=== PATIENT | female | born 1960 | race Caucasian/White ===

== ENCOUNTER 2019-05-08 11:22 | Day surgery (SDC) | payer MEDICARE ==
[2019-05-08] MEDS ORDERED: Marcaine 0.5% SDV 10 ML IJ ONE (11:23)
[2019-05-08] MEDS ORDERED: DIPRIVAN 200 MG/20 ML IV ONE (12:32)
[2019-05-08] MEDS ORDERED: Ketamine HCl 50 MG/ML ONE (12:32)
--- NOTE | 2019-05-08 14:03 | XRAY ---
Indication: Ganglion impar nerve block. Intraoperative fluoroscopy was provided for 28 seconds. Single lateral digital spot image submitted for interpretation demonstrates posterior needle tip just anteroinferior to the coccyx. Small amount of contrast injected for needle tip placement. Correlate with intraoperative findings/report.
--- NOTE | 2019-05-08 14:09 | XRAY ---
28 seconds fluoroscopy time in surgery for ganglion impar nerve block.
[2019-05-08] MEDS ORDERED: Lactated Ringers 1,000 ML IV ONE (15:18)
== END 2019-05-08 13:02 | disposition home or self-care (01) ==
LOC: SDC-PAIN 11:22
PROVIDERS: ATTEND Psychiatry & Neurology Pain Medicine
DX: M53.3 Sacrococcygeal disorders, not elsewhere classified (principal); J44.9 Chronic obstructive pulmonary disease, unspecified; G35 Multiple sclerosis; M19.90 Unspecified osteoarthritis, unspecified site; F41.8 Other specified anxiety disorders; Z79.899 Other long term (current) drug therapy
CPT/HCPCS: 64999; 72020; 77002; J1642; J2704; Q9966

== ENCOUNTER 2019-06-19 10:05 | Day surgery (SDC) | payer MEDICARE ==
[2019-06-19] MEDS ORDERED: Marcaine 0.5% SDV 10 ML IJ ONE (10:06)
[2019-06-19] MEDS ORDERED: Xylocaine 1% Vial 30 ML PF IJ ONE (10:06)
[2019-06-19] MEDS ORDERED: Ketamine HCl 50 MG/ML ONE (11:31)
[2019-06-19] MEDS ORDERED: DIPRIVAN 200 MG/20 ML IV ONE (11:31)
--- NOTE | 2019-06-19 12:59 | XRAY ---
Indication: Ganglion impar nerve block. Intraoperative fluoroscopy was provided for 13 seconds. Single lateral digital spot image submitted for interpretation demonstrates posterior needle tip just anteriorly to the coccyx. Small amount of contrast injected for needle tip placement. Correlate with intraoperative findings/report.
--- NOTE | 2019-06-19 13:01 | XRAY ---
13 seconds of fluoroscopy was used in surgery for a ganglion impar injection.
[2019-06-19] MEDS ORDERED: Lactated Ringers 1,000 ML IV ONE (15:55)
== END 2019-06-19 12:00 | disposition home or self-care (01) ==
LOC: SDC-PAIN 10:05
PROVIDERS: ATTEND Psychiatry & Neurology Pain Medicine
DX: M53.3 Sacrococcygeal disorders, not elsewhere classified (principal); J44.9 Chronic obstructive pulmonary disease, unspecified; G35 Multiple sclerosis; M19.90 Unspecified osteoarthritis, unspecified site; Z79.899 Other long term (current) drug therapy
CPT/HCPCS: 64520; 72020; 77002; J1642; J2001; J2704; Q9966

== ENCOUNTER 2019-08-21 11:18 | Day surgery (SDC) | payer MEDICARE ==
[2019-08-21] MEDS ORDERED: Depo-Medrol 40 MG/ML IM ONE (11:19)
[2019-08-21] MEDS ORDERED: Xylocaine-Mpf 2% 5 Ml Vial IJ ONE (11:19)
[2019-08-21] MEDS ORDERED: Ketamine HCl 50 MG/ML ONE (13:11)
[2019-08-21] MEDS ORDERED: DIPRIVAN 200 MG/20 ML IV ONE (13:11)
--- NOTE | 2019-08-21 14:30 | XRAY ---
Indication: Bilateral L4-S1 MBB. Intraoperative fluoroscopy was provided for 10 seconds. Single digital spot image submitted for interpretation demonstrate posterior needle tips projecting over the expected course of the left and right L4-S1 nerve roots. Correlate with intraoperative findings/report.
[2019-08-21] MEDS ORDERED: Lactated Ringers 1,000 ML IV ONE (14:45)
--- NOTE | 2019-08-21 14:52 | XRAY ---
10 seconds fluoroscopy time in surgery for bilateral L4-S1 MBB.
== END 2019-08-21 14:06 | disposition home or self-care (01) ==
LOC: SDC-PAIN 11:18
PROVIDERS: ATTEND Psychiatry & Neurology Pain Medicine
DX: M47.816 Spondylosis without myelopathy or radiculopathy, lumbar region (principal); J44.9 Chronic obstructive pulmonary disease, unspecified; F41.8 Other specified anxiety disorders; G35 Multiple sclerosis; Z79.899 Other long term (current) drug therapy
CPT/HCPCS: 64493; 64494; 72020; 77002; J1030; J1642; J2704

== ENCOUNTER 2020-01-15 13:47 | Day surgery (SDC) | payer MEDICARE ==
[2020-01-15] MEDS ORDERED: Xylocaine 1% Vial 30 ML PF IJ ONE (13:48)
[2020-01-15] MEDS ORDERED: BUPIVACAINE 0.5% VIAL IJ ONE (13:48)
[2020-01-15] MEDS ORDERED: Depo-Medrol 40 MG/ML IM ONE (13:48)
[2020-01-15] MEDS ORDERED: DIPRIVAN 200 MG/20 ML IV ONE (14:38)
[2020-01-15] MEDS ORDERED: Ketamine HCl 50 MG/ML ONE (14:38)
[2020-01-15] MEDS ORDERED: Lactated Ringers 1,000 ML IV ONE (14:41)
--- NOTE | 2020-01-15 15:15 | XRAY ---
Indication: Bilateral L4-S1 MBB. Intraoperative fluoroscopy was provided for 9 seconds. Single digital spot image submitted for interpretation demonstrates posterior needle tips projecting over the expected course of the left and right L4-S1 nerve roots. Correlate with intraoperative findings/report.
--- NOTE | 2020-01-15 17:01 | XRAY ---
9 seconds of fluoroscopy was used in surgery for a bilateral L4-L5 and L5-S1 MBB.
== END 2020-01-15 15:25 | disposition home or self-care (01) ==
LOC: SDC-PAIN 13:47
PROVIDERS: ATTEND Psychiatry & Neurology Pain Medicine
DX: M47.816 Spondylosis without myelopathy or radiculopathy, lumbar region (principal); J44.9 Chronic obstructive pulmonary disease, unspecified; G35 Multiple sclerosis; R32 Unspecified urinary incontinence; Z79.899 Other long term (current) drug therapy
CPT/HCPCS: 64493; 64494; 72020; 77002; J1030; J1642; J2001; J2704

== ENCOUNTER 2020-02-25 09:08 | Day surgery (SDC) | payer MEDICARE ==
[~2020-02-25 09:08] MED LIST: ACETAZOLAMIDE 250 MG TABLET PO ONE; Ak-Dilate OPHTHALMIC*** 1.065 ML, Cyclogyl 1% OPHTH SOL 5 ML 1.065 ML, GATIFLOXACIN 0.5... OP ONE; Lactated Ringers 1,000 ML IV SCH; NON-FORMULARY ITEM IJ ONE; NON-FORMULARY ITEM OP ONE; TETRACAINE 0.5% STERI-UNIT SOL OP ONE; Zofran 4 MG/2 ML VIAL IV PRN; cefUROXime sodium 0.005 GM in Sodium Chloride Flush 30 ML*** 0.5 ML IJ SCH
[2020-02-25] MEDS ORDERED: BETADINE 5% OPHTHALMIC 30 ML OP ONE (09:09)
[2020-02-25] MEDS ORDERED: LIDOCAINE HCL 1% 50 MG/5 ML VL PF IJ ONE (09:09)
[2020-02-25] MEDS ORDERED: Epinephrine Preservative Free 1 MG/ML IJ ONE (09:09)
[2020-02-25] MEDS ORDERED: Lactated Ringers 1,000 ML IV ONE (09:48)
[2020-02-25 10:03] VITALS: O2SAT 94
[2020-02-25 10:30] LABS: Hematocrit 41.5 % (35-47); Hemoglobin 13.6 gm/dl (12.0-16.0); Mean Cell Volume 90.4 fl (78-100); Mean Corpuscular Hemoglobin 29.6 pg (26-32); Mean Corpuscular Hgb Concent. 32.8 g/dl (32-36); Mean Platelet Volume 12.6 fl (7.5-11.0); Platelet Count 172 K/mm3 (150-450); Red Blood Count 4.59 M/mm3 (4.1-5.4); Red Cell Distribution Width 13.2 % (11.5-14.0)
[2020-02-25 10:46] LABS: ALBUMIN 3.8 g/dL (3.5-5.0); BILIRUBIN,TOTAL 0.4 mg/dL (0.2-1.3); Direct Bilirubin 0.1 mg/dL (0.0-0.4); Total Protein 6.5 g/dL (6.3-8.2)
[2020-02-25] MEDS ORDERED: Sodium Chloride 0.9% 10 ML FLUSH Syringe PORT FLUSH PRN (12:35)
[2020-02-25 12:43] VITALS: PULSE 71
[2020-02-25 13:01] VITALS: BP 113/55
[2020-02-25 14:25] LABS: Neutrophils 67 % (36.0-66.0)
[2020-02-25 14:26] LABS: Monocyte 9 % (0.0-12.0)
[2020-02-25 14:27] LABS: Lymphocytes 24 % (24-44); Platelet Estimate NORMAL (NORMAL)
[2020-02-25 14:28] LABS: Morphology Comment NORMAL
--- NOTE | 2020-02-26 10:50 | OP ---
DATE/TIME OF OPERATION: 02/25/2020 1147 TIME DICTATED: 02/25/2020 1314 PREOPERATIVE DIAGNOSIS: Senile cataract of left eye. POSTOPERATIVE DIAGNOSIS: Senile cataract of left eye. SURGEON: Emelyn Lawler MD EYEGLASS MAKER: NONE OPERATION: Cataract extraction of left eye with an intraocular lens implant STANDARD __X___ COMPLEX ANESTHESIA: __X____ Monitored anesthesia care in combination with topical and intra-cameral anesthesia (because of the established specific risk of reflux, arrhythmias, or an anxiety attack associated with ocular manipulation as well as difficulty of the freelance operator to manage such potentially catastrophic events while simultaneously attempting to complete the surgical procedure, it was deemed necessary for the patient's safety to have an anesthesiologist or a nurse personal clothing laundry aide present during the procedure whenever possible. The anesthesiologist or the nurse personal clothing laundry aide was utilized to monitor and regulate the intravenous sedation of the patient, so the patient was cooperative, relaxed, and comfortable). Topical anesthesia using Tetracaine eye drops together with intra cameral anesthesia using Lidocaine 1% MPF. The nurse was utilized to monitor the patient. ANESTHESIA PROVIDER: Chas Cole CRNA. COMPLICATIONS: None. BLOOD LOSS: None INDICATIONS: The patient is undergoing cataract surgery in the hopes of eliminating the visual complaints and difficulty. PROCEDURE: After arriving at the facility's outpatient surgery area, an IV was started; the patient was given 5 mg of p.o. Versed. (If an anesthesia provider was not monitoring the patient) The patient was then given topical anesthetic Tetracaine eye drops. A cotton pellet was soaked into a solution of a combination of Zymaxid 0.5%, Armando-Synephrine 2.5% and Ocufen (other drops might have been substituted referenced in the patient's record). The pellet was inserted by the RN into the lower conjunctival cul-de-sac with a sterile forceps and left for 20 minutes. The pellet was then removed by the RN with a sterile forceps before taking the patient to the operating room. The preoperative area nurse identified the patient and marked the correct eye to be operated on. I identified the correct eye to be operated on and marked it appropriately in the outpatient surgery area. The patient was then taken into the operating room. Tetracaine eye drops were installed again in the correct eye. The eyelids and the lashes and the lid margins were scrubbed with Betadine solution. One drop of the diluted Betadine solution was placed in the conjunctival cul-de-sac for 45 seconds and then was irrigated. A drop of Tetracaine Gel was placed in the conjunctival cul-de-sac. The patient's forehead was taped to secure it during the procedure. The patient was monitored. The patient was then draped in the usual way for this procedure. An eye speculum was used to separate the eyelids. The eye was then fixated and a temporal 2.5 mm incision was made in the clear cornea temporally at the limbus. Through the incision, 0.25 cc of 1% non-preserved lidocaine was injected into the anterior chamber for intracameral anesthesia. The anterior chamber was then filled with viscoelastic. The pupil was small. I felt that it would be safer to mechanically dilate the pupil. A Malyugin ring was used at this point which dilated the pupil. That was removed at the end of the procedure prior to aspiration of the viscoelastic from the anterior chamber and posterior to the intraocular lens implant. The cataract had a great amount of cortical changes. That rendered seeing the anterior capsule difficult for a safe performance of an anterior capsulotomy. I injected an air bubble into the anterior chamber. I then injected 1 ML of vision blue solution into the anterior chamber. The vision blue solution was irrigated from the anterior chamber after 30 seconds. The anterior capsule was stained which facilitated performing the anterior capsulotomy safely. After that was completed, a cystotome was introduced into the anterior chamber and a round anterior capsulotomy was performed. The capsule was removed by a forceps. Hydrodissection was next carried utilizing a 25-gauge cannula and balanced salt solution to delineate the cortical material from the capsule and the nucleus from the cortical material. The nucleus was rotated freely into the capsular bag with no difficulty. The phaco tip of the [employer] Phaco[employer]uls[employer] was introduced into the anterior chamber and two grooves were made into the nucleus 90 degrees apart. Using two spatulas resulted into the nucleus being fractured into four quadrants. The phaco tip was then used to remove each quadrant of the nucleus. Viscoelastic was used during this process to protect the corneal endothelium. Once the entire nucleus was removed, the phaco tip then was removed and the irrigation tip was introduced into the eye and the cortex was removed. The posterior capsule was polished. It was noticed that there was a tear into the posterior capsule with few vitreous strands into the pupil plan. An anterior vitrectomy was performed. A 22.50 diopter, [id number], posterior chamber lens implant, was inspected and found to be grossly normal. The implant was inserted into the implant injector cartridge; Viscoelastic again was introduced into the anterior chamber, which filled the capsular bag. The implant injector's cartridge tip was placed at the limbal wound and the posterior chamber implant was released into the capsular bag and rotated appropriately. The implant was found to be into the capsular bag and it was centered. 0.2 ml of Tri-Moxi was introduced via 27 gauge cannula into the vitreous cavity through the ciliary processes. Viscoelastic was aspirated from the anterior chamber and posterior to the intraocular lens implant from the capsular bag using the irrigating tip. The anterior chamber was irrigated and filled with 5 cc antibiotic solution (500 cc of BSS plus 2 ml of Fortaz 100 mg/ml) ( if patient was not allergic to the medication). The lips of the corneal incision were hydrated using BSS solution. The anterior chamber was checked and found to be water tight. ___X___ One drop each of antibiotic, steroid and NSAID drops (refer to chart for drops used) were placed in the conjunctival cul-de-sac of the operated eye. Patient tolerated the procedure quite well and left the operating room in satisfactory condition. NOTE: At the end of the procedure, 1 mg into 0.1 ml of Cefuroxime was introduced into the anterior chamber posterior to the intraocular lens implant. DISCHARGE SUMMARY: The patient was released in stable condition. The patient and those with the patient were given an instruction sheet as of how to care for the eye after surgery as well as counseling on any abnormal laboratory studies by the postoperative RN. The patient was also given an appointment card for follow-up in the office and is to call immediately for any difficulties including but not limited to pain in the eye, decreased vision, discharge from the eye, headache and or fever. DISCHARGE DIAGNOSIS: Pseudophakia of left eye
== END 2020-02-25 12:50 | disposition home or self-care (01) ==
LOC: SDC 09:08
PROVIDERS: ATTEND Ophthalmology
DX: H25.812 Combined forms of age-related cataract, left eye (principal); G35 Multiple sclerosis; J45.909 Unspecified asthma, uncomplicated; Z79.899 Other long term (current) drug therapy
CPT/HCPCS: 36415; 80076; 85025; C1780; J0171; J1642; J2001; A9270-GY

== ENCOUNTER 2025-05-16 18:43 | Observation (INO) | payer MEDICARE ==
--- NOTE | 2025-05-16 18:59 | ERPHSYRPT ---
- History of Present Illness Time Seen by Provider: 05/16/25 18:59 Historian: patient Exam Limitations: no limitations Patient Subjective Stated Complaint: PT states "I had a bowel blockage right before at [facility], I have had diarrhea since. I have a wound on my buttock and I do not feel well." Triage Nursing Assessment: Pt presented alert and oriented X 3, skin pwd. Pt able to speak in clear full sentences. 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 Pt rodriguez catheter is leaking as well. Physician History: Patient presents with abd pain, diarrhea and sacral wound. She has hx of MS. Patient was admitted to [facility] over for SBO that resolved w/o surgery. Patient reports having diarrhea since leaving the hospital. The sacral wound is worsening past the point she feels comfortable care for on her own. No fevers at home, 100.4 on ER arrival with HR in the 130s. Activities at Onset: none Quality: fullness, sharpness Abdominal Pain Onset Location: generalized abdomen Pain Radiation: no radiation Severity of Pain-Max: severe Severity of Pain-Current: mild Modifying Factors: Worsens With: movement, palpation Allergies/Adverse Reactions: amoxicillin Adverse Reaction (Intermediate, Verified 05/16/25 18:55) Diarrhea sulfamethoxazole [From Bactrim] Adverse Reaction (Intermediate, Verified 05/16/25 18:54) Vomiting trimethoprim [From Bactrim] Adverse Reaction (Intermediate, Verified 05/16/25 18:54) Vomiting Home Medications: Nitrofurantoin Monohyd/M-Cryst [Macrobid 100 mg Capsule] 100 mg PO DAILY 02/18/20 [History] Pregabalin [Lyrica 150Mg] 150 mg PO TID 02/18/20 [History] Tizanidine HCl 4 mg [Zanaflex 4 MG] 4 mg PO DAILY 05/16/25 [History] Hx Tetanus, Diphtheria Vaccination/Date Given: Yes Hx Influenza Vaccination/Date Given: No Hx Pneumococcal Vaccination/Date Given: No Immunizations Up to Date: No Travel Risk - International Travel Have you traveled outside of the country in past 3 weeks: No - Emerging Infectious Disease Are you exhibiting symptoms associated with any current EIDs: No - Review of Systems All Other Systems: Reviewed and Negative - Past Medical History Pertinent Past Medical History: Yes Neurological History: No Pertinent History ENT History: Cataracts Cardiac History: No Pertinent History Respiratory History: No Pertinent History Endocrine Medical History: No Pertinent History GI Medical History: GERD, Other History: Other Other Medical History: multiple UTI/kidney infections, MS. bowel blockage - Past Surgical History Past Surgical History: Yes Neuro Surgical History: No Pertinent History Cardiac: No Pertinent History Respiratory: No Pertinent History Gastrointestinal: No Pertinent History Genitourinary: No Pertinent History Musculoskeletal: No Pertinent History Female Surgical History: Hysterectomy - Social History Smoking Status: Current every day smoker How long have you smoked: 44 years Exposure to second hand smoke: Yes Drug Use: none - Social Determinants of Health Will the patient participate in the screening: Declined to provide - Nursing Vital Signs Nursing Vital Signs: Initial Vital Signs Temperature 100 F 05/16/25 18:44 Pulse Rate 136 H 05/16/25 18:44 Respiratory Rate 18 05/16/25 18:44 Blood Pressure 119/52 05/16/25 18:44 O2 Sat by Pulse Oximetry 97 05/16/25 18:44 Pain Scale Pain Intensity 6 - Physical Exam General Appearance: no apparent distress, thin Respiratory Exam: normal breath sounds, lungs clear, airway intact, No chest tenderness, No respiratory distress Cardiovascular Exam: regular rate/rhythm, tachycardia, capillary refill <2 sec, No edema Gastrointestinal/Abdomen Exam: tenderness (generalized), distention, other (tympanic on percussion), No normal bowel sounds (hyperactive), No guarding, No rebound Neurologic Exam: alert, oriented x 3, cooperative Skin Exam: warm, dry, pale, No rash SpO2 Interpretation: normal SpO2: 97 O2 Delivery: Room Air - Course Nursing assessment & vital signs reviewed: Yes Ordered Tests: Active Orders 24 hr Category Date Time Status Call Admit Doctor for Orders ON ADMISSION Care 05/17/25 00:34 Active Code Status Order ROUTINE Care 05/17/25 00:34 Active Fall Protocol Q1H Care 05/17/25 00:34 Active IV Insertion STAT Care 05/16/25 19:03 Completed NPO (ED) STAT Care 05/16/25 19:03 Completed Telemetry q6h Care 05/17/25 00:34 Active House Regular Diet Diet 05/17/25 Breakfast Active ABDOMEN AND PELVIS W CONTRAST [CT] Stat Exams 05/16/25 19:03 Taken BLOOD CULTURE Stat Lab 05/16/25 19:03 Received CBC W DIFF Stat Lab 05/16/25 19:51 Completed CMP Stat Lab 05/16/25 19:51 Completed LIPASE Stat Lab 05/16/25 19:51 Completed Lactic Acid Stat Lab 05/16/25 19:03 Completed PROCALCITONIN Stat Lab 05/16/25 19:51 Completed UA W/RFX UR CULTURE Stat Lab 05/16/25 20:17 Completed Urine Triage Profile Stat Lab 05/16/25 20:18 Completed VENOUS BLOOD GAS Stat Lab 05/16/25 19:04 Completed Oxygen Nasal Cannula 2 lpm RT 05/17/25 00:34 Active Pulse Oximetry CONTINUOUS RT 05/17/25 00:34 Active Respiratory Therapy Consult ONCE RT 05/17/25 00:34 Active Medication Summary Generic Name Dose Route Start Last Admin Trade Name Freq PRN Reason Stop Dose Admin Acetaminophen 650 mg 05/17/25 00:48 Acetaminophen 325 Mg Tablet PO 06/16/25 00:47 Q4H PRN PRN PAIN AND/OR FEVER Albuterol/Ipratropium 3 ml 05/17/25 01:00 05/17/25 06:39 Ipratropium/Albuterol Sulfate 3 Ml Ampul.Neb IH 06/16/25 00:59 3 ml Q6HRT REBECCA Administration Enoxaparin Sodium 40 mg 05/17/25 10:00 Enoxaparin Sodium 40 Mg/0.4 Ml Syringe SQ 06/16/25 09:59 DAILY REBECCA Meropenem 1 gm/ Sodium 100 mls @ 200 mls/hr 05/17/25 06:00 05/17/25 06:24 Chloride IV 05/20/25 05:59 200 mls/hr Q8HT REBECCA Administration Vancomycin HCl 1 gm in 200 mls @ 125 mls/hr 05/17/25 01:00 05/17/25 01:53 Vancomycin 1 Gram/200 Ml Bag IV 06/16/25 00:59 125 mls/hr Q24H REBECCA Administration Ondansetron HCl 4 mg 05/17/25 00:49 Ondansetron Hcl 4 Mg/2 Ml Vial IV 06/16/25 00:48 Q6H PRN PRN NAUSEA/VOMITING Pregabalin 150 mg 05/17/25 10:00 Pregabalin 150 Mg Capsule PO 06/16/25 09:59 TID REBECCA Tizanidine HCl 4 mg 05/17/25 10:00 Tizanidine Hcl 4 Mg Tablet PO 06/16/25 09:59 DAILY REBECCA Discontinued Medications Generic Name Dose Route Start Last Admin Trade Name Kaylie PRN Reason Stop Dose Admin Acetaminophen 650 mg 05/16/25 22:17 05/16/25 23:03 Acetaminophen 325 Mg Tablet PO 05/16/25 22:18 650 mg STAT STA Administration Acetaminophen Confirm 05/16/25 23:02 Acetaminophen 325 Mg Tablet Administered 05/16/25 23:03 Dose 650 mg .ROUTE .STK-MED ONE Albuterol/Ipratropium Confirm 05/16/25 23:22 Ipratropium/Albuterol Sulfate 3 Ml Ampul.Neb Administered 05/16/25 23:23 Dose 3 ml IH .STK-MED ONE Albuterol/Ipratropium 3 ml 05/16/25 23:24 05/16/25 23:25 Ipratropium/Albuterol Sulfate 3 Ml Ampul.Neb IH 05/16/25 23:25 3 ml STAT ONE Administration Sodium Chloride 1,000 mls @ 999 mls/hr 05/16/25 19:03 05/16/25 20:35 Sodium Chloride 0.9% 1000 Ml IV 05/16/25 20:03 Infused .Q1H1M STA Infusion Vancomycin HCl 1 gm in 200 mls @ 125 mls/hr 05/16/25 19:04 05/16/25 20:41 Vancomycin 1 Gram/200 Ml Bag IV 05/16/25 20:39 125 mls/hr STAT ONE 125 mls/hr Administration Meropenem 1 gm/ Sodium 100 mls @ 200 mls/hr 05/16/25 19:04 05/16/25 20:11 Chloride IV 05/16/25 19:33 0 ml/hr STAT ONE 0 mls/hr Infusion Sodium Chloride Confirm 05/16/25 19:30 Sodium Chloride 0.9% Administered 05/16/25 19:31 Dose 100 mls @ ud .ROUTE .STK-MED ONE Sodium Chloride Confirm 05/16/25 19:30 Sodium Chloride 0.9% 1000 Ml Administered 05/16/25 19:31 Dose 1,000 mls @ ud .ROUTE .STK-MED ONE Vancomycin HCl Confirm 05/16/25 20:39 Vancomycin 1 Gram/200 Ml Bag Administered 05/16/25 20:40 Dose 1 gm in 200 mls @ ud IV .STK-MED ONE Sodium Chloride Confirm 05/17/25 06:14 Sodium Chloride 0.9% Administered 05/17/25 06:15 Dose 100 mls @ ud .ROUTE .STK-MED ONE Meropenem Confirm 05/16/25 19:29 Meropenem 1 Gm Vial Administered 05/16/25 19:30 Dose 1 gm IV .STK-MED ONE Meropenem Confirm 05/17/25 06:12 Meropenem 1 Gm Vial Administered 05/17/25 06:13 Dose 1 gm IV .STK-MED ONE Lab/Rad Data: Laboratory Result Diagrams 05/16/25 19:51 05/16/25 19:51 Laboratory Results 05/16/25 05/16/25 05/16/25 Range/Units 20:18 20:17 19:51 WBC (3.98-10.04) x10^3/uL RBC (3.93-5.22) x10^6/uL Hgb (11.2-15.7) g/dL Hct (34.1-44.9) % MCV (79.4-94.8) fL MCH (25.6-32.2) pg MCHC (32.2-35.5) g/dL RDW (11.7-14.4) % Plt Count (182-369) x10^3/uL MPV (9.4-12.3) fL Gran % (34.0-71.1) % Immature Gran % (Auto) (0.001-0.429) % Nucleat RBC Rel Count (0.00-0.2) % Eos # (Auto) (0.04-0.36) x10^3/uL Immature Gran # (Auto) (0.001-0.031) x10^3u/L Absolute Lymphs (auto) (1.18-3.74) x10^3/uL Absolute Monos (auto) (0.24-0.86) x10^3/uL Absolute Nucleated RBC (0.00-0.012) x10^3u/L Lymphocytes % (19.3-51.7) % Monocytes % (4.7-12.5) % Eosinophils % (0.7-5.8) % Basophils % (0.1-1.2) % Absolute Granulocytes (1.56-6.13) x10^3/uL Basophils # (0.01-0.08) x10^3/uL pO2/FiO2 Ratio % VBG pH (7.32-7.42) VBG pCO2 at Pat Temp (42-55) mm/Hg VBG pO2 at Pat Temp (25-40) mm/Hg VBG HCO3 (22-28) meq/L VBG O2 Sat (Yoshi) (95-100) VBG Base Excess (-2.0-2.0) VBG Hemoglobin VBG Carboxyhemoglobin (0.0-6.9) % T HGB POC Potassium (3.5-5.1) Sodium (135-145) mmol/L Potassium (3.5-5.1) mmol/L Chloride (98-107) mmol/L Carbon Dioxide (22-30) mmol/L Anion Gap (5-15) MEQ/L BUN (7-17) mg/dL Creatinine (0.52-1.04) mg/dL Estimated GFR ML/MIN Glucose (74-106) mg/dL Lactic Acid (0.4-2.0) Calcium (8.4-10.2) mg/dL Total Bilirubin (0.2-1.3) mg/dL AST (14-36) U/L ALT (0-35) U/L Alkaline Phosphatase (38-126) U/L Serum Total Protein (6.3-8.2) g/dL Albumin (3.5-5.0) g/dL Lipase (23-300) U/L Procalcitonin 0.108 H (0.030-0.080) ng/mL Urine Color Dark Yellow A (Yellow) Urine Appearance Turbid A (Clear) Urine pH 7.0 (4.6-8.0) Ur Specific [place] 1.020 (1.005-1.030) Urine Protein 30 (Negative) Urine Glucose (UA) Negative (Negative) mg/dL Urine Ketones Negative (Negative) Urine Blood NHT (Negative) Urine Nitrite Negative (Negative) Urine Bilirubin Negative (Negative) Urine Urobilinogen 0.2 (0.2) mg/dL Ur Leukocyte Esterase Negative (Negative) U Hyaline Cast (Auto) 3-5 A (0-2) /LPF Urine Microscopic RBC 3-5 (0-5) /HPF Urine Microscopic WBC 6-10 A (0-5) /HPF Ur Epithelial Cells Rare (None Seen) /HPF Urine Bacteria None Seen (None Seen) /HPF Urine Culture Reflexed NO (NO) Urine Opiates Level POSITIVE A (NEGATIVE) Ur Methadone NEGATIVE (NEGATIVE) Urine Barbiturates NEGATIVE (NEGATIVE) Ur Phencyclidine (PCP) NEGATIVE (NEGATIVE) Urine Amphetamine NEGATIVE (NEGATIVE) U Benzodiazepine Level NEGATIVE (NEGATIVE) Urine Cocaine NEGATIVE (NEGATIVE) Urine Marijuana (THC) POSITIVE A (NEGATIVE) 05/16/25 05/16/25 05/16/25 Range/Units 19:51 19:51 19:04 WBC 19.4 H (3.98-10.04) x10^3/uL RBC 3.71 L (3.93-5.22) x10^6/uL Hgb 11.7 (11.2-15.7) g/dL Hct 36.5 (34.1-44.9) % MCV 98.4 H (79.4-94.8) fL MCH 31.5 (25.6-32.2) pg MCHC 32.1 L (32.2-35.5) g/dL RDW 14.4 (11.7-14.4) % Plt Count 307 (182-369) x10^3/uL MPV 10.3 (9.4-12.3) fL Gran % 85.8 H (34.0-71.1) % Immature Gran % (Auto) 0.3 (0.001-0.429) % Nucleat RBC Rel Count 0.0 (0.00-0.2) % Eos # (Auto) 0.02 L (0.04-0.36) x10^3/uL Immature Gran # (Auto) 0.06 H (0.001-0.031) x10^3u/L Absolute Lymphs (auto) 0.97 L (1.18-3.74) x10^3/uL Absolute Monos (auto) 1.67 H (0.24-0.86) x10^3/uL Absolute Nucleated RBC 0.00 (0.00-0.012) x10^3u/L Lymphocytes % 5.0 L (19.3-51.7) % Monocytes % 8.6 (4.7-12.5) % Eosinophils % 0.1 L (0.7-5.8) % Basophils % 0.2 (0.1-1.2) % Absolute Granulocytes 16.63 H (1.56-6.13) x10^3/uL Basophils # 0.03 (0.01-0.08) x10^3/uL pO2/FiO2 Ratio 21.0 % VBG pH 7.47 H (7.32-7.42) VBG pCO2 at Pat Temp 51 (42-55) mm/Hg VBG pO2 at Pat Temp 25 (25-40) mm/Hg VBG HCO3 37.1 H* (22-28) meq/L VBG O2 Sat (Yoshi) 43.4 L (95-100) VBG Base Excess 11.7 H (-2.0-2.0) VBG Hemoglobin 12.0 VBG Carboxyhemoglobin 7.6 H* (0.0-6.9) % T HGB POC Potassium 4.1 (3.5-5.1) Sodium 138 (135-145) mmol/L Potassium 4.1 (3.5-5.1) mmol/L Chloride 100 (98-107) mmol/L Carbon Dioxide 31 H (22-30) mmol/L Anion Gap 10.3 (5-15) MEQ/L BUN 15 (7-17) mg/dL Creatinine 0.55 (0.52-1.04) mg/dL Estimated GFR 102.3 ML/MIN Glucose 85 (74-106) mg/dL Lactic Acid (0.4-2.0) Calcium 9.2 (8.4-10.2) mg/dL Total Bilirubin 0.30 (0.2-1.3) mg/dL AST 20 (14-36) U/L ALT 16 (0-35) U/L Alkaline Phosphatase 68 (38-126) U/L Serum Total Protein 6.7 (6.3-8.2) g/dL Albumin 3.3 L (3.5-5.0) g/dL Lipase 57 (23-300) U/L Procalcitonin (0.030-0.080) ng/mL Urine Color (Yellow) Urine Appearance (Clear) Urine pH (4.6-8.0) Ur Specific [place] (1.005-1.030) Urine Protein (Negative) Urine Glucose (UA) (Negative) mg/dL Urine Ketones (Negative) Urine Blood (Negative) Urine Nitrite (Negative) Urine Bilirubin (Negative) Urine Urobilinogen (0.2) mg/dL Ur Leukocyte Esterase (Negative) U Hyaline Cast (Auto) (0-2) /LPF Urine Microscopic RBC (0-5) /HPF Urine Microscopic WBC (0-5) /HPF Ur Epithelial Cells (None Seen) /HPF Urine Bacteria (None Seen) /HPF Urine Culture Reflexed (NO) Urine Opiates Level (NEGATIVE) Ur Methadone (NEGATIVE) Urine Barbiturates (NEGATIVE) Ur Phencyclidine (PCP) (NEGATIVE) Urine Amphetamine (NEGATIVE) U Benzodiazepine Level (NEGATIVE) Urine Cocaine (NEGATIVE) Urine Marijuana (THC) (NEGATIVE) 05/16/25 Range/Units 19:03 WBC (3.98-10.04) x10^3/uL RBC (3.93-5.22) x10^6/uL Hgb (11.2-15.7) g/dL Hct (34.1-44.9) % MCV (79.4-94.8) fL MCH (25.6-32.2) pg MCHC (32.2-35.5) g/dL RDW (11.7-14.4) % Plt Count (182-369) x10^3/uL MPV (9.4-12.3) fL Gran % (34.0-71.1) % Immature Gran % (Auto) (0.001-0.429) % Nucleat RBC Rel Count (0.00-0.2) % Eos # (Auto) (0.04-0.36) x10^3/uL Immature Gran # (Auto) (0.001-0.031) x10^3u/L Absolute Lymphs (auto) (1.18-3.74) x10^3/uL Absolute Monos (auto) (0.24-0.86) x10^3/uL Absolute Nucleated RBC (0.00-0.012) x10^3u/L Lymphocytes % (19.3-51.7) % Monocytes % (4.7-12.5) % Eosinophils % (0.7-5.8) % Basophils % (0.1-1.2) % Absolute Granulocytes (1.56-6.13) x10^3/uL Basophils # (0.01-0.08) x10^3/uL pO2/FiO2 Ratio % VBG pH (7.32-7.42) VBG pCO2 at Pat Temp (42-55) mm/Hg VBG pO2 at Pat Temp (25-40) mm/Hg VBG HCO3 (22-28) meq/L VBG O2 Sat (Yoshi) (95-100) VBG Base Excess (-2.0-2.0) VBG Hemoglobin VBG Carboxyhemoglobin (0.0-6.9) % T HGB POC Potassium (3.5-5.1) Sodium (135-145) mmol/L Potassium (3.5-5.1) mmol/L Chloride (98-107) mmol/L Carbon Dioxide (22-30) mmol/L Anion Gap (5-15) MEQ/L BUN (7-17) mg/dL Creatinine (0.52-1.04) mg/dL Estimated GFR ML/MIN Glucose (74-106) mg/dL Lactic Acid 1.3 (0.4-2.0) Calcium (8.4-10.2) mg/dL Total Bilirubin (0.2-1.3) mg/dL AST (14-36) U/L ALT (0-35) U/L Alkaline Phosphatase (38-126) U/L Serum Total Protein (6.3-8.2) g/dL Albumin (3.5-5.0) g/dL Lipase (23-300) U/L Procalcitonin (0.030-0.080) ng/mL Urine Color (Yellow) Urine Appearance (Clear) Urine pH (4.6-8.0) Ur Specific [place] (1.005-1.030) Urine Protein (Negative) Urine Glucose (UA) (Negative) mg/dL Urine Ketones (Negative) Urine Blood (Negative) Urine Nitrite (Negative) Urine Bilirubin (Negative) Urine Urobilinogen (0.2) mg/dL Ur Leukocyte Esterase (Negative) U Hyaline Cast (Auto) (0-2) /LPF Urine Microscopic RBC (0-5) /HPF Urine Microscopic WBC (0-5) /HPF Ur Epithelial Cells (None Seen) /HPF Urine Bacteria (None Seen) /HPF Urine Culture Reflexed (NO) Urine Opiates Level (NEGATIVE) Ur Methadone (NEGATIVE) Urine Barbiturates (NEGATIVE) Ur Phencyclidine (PCP) (NEGATIVE) Urine Amphetamine (NEGATIVE) U Benzodiazepine Level (NEGATIVE) Urine Cocaine (NEGATIVE) Urine Marijuana (THC) (NEGATIVE) - Progress Progress: improved Progress Note: Meets criteria for sepsis screening. CBC, CMP, lactate, blood cx x 2, NS bolus, procal, VBG, Vanc/Merem ordered. Will obtain CT a/p w/ contrast to evaluate. Will obtain cx of sacral wound. 05/16/25 19:52 VBG - pH 7.47, lactic 1.[address] shows no bowel obstruction, but did show RLL pneumonia Hospitalist accepts for observation. Discussed with : Merced Will see patient in: hospital (observation) Counseled pt/family regarding: lab results, diagnosis, need for follow-up, rad results Medical Desision Making - Discussion of managment Care discussed with:: hospitalist Reviewed:: Test results Agreed on:: Treatment plan, place in obs Will see patient: In office - Diagnostic Testing Diagnostic test were ordered, analyzed, and reviewed by me: Yes Radiological Interpretation: Interpreted by me, Reviewed by me, Teleradiologist Report - Risk of complications The pt has a mod risk of morbidity or mortality based on: Need for prescription drug management The pt has a high risk of morbidity or mortality based on: Decision regarding hospitilization or escalation of hosp level of care - Departure Departure Disposition: In-patient Admission Clinical Impression: Sacral decubitus ulcer, Right lower lobe pneumonia, Diarrhea Condition: Stable Critical Care Time: No
[2025-05-16] MEDS: Merrem 1 GM in Sodium Chloride 0.9% 100 ML IV ONE (19:41)
[2025-05-16 19:54] LABS: BASOPHIL % 0.2 % (0.1-1.2); Basophil (Absolute #) 0.03 x10^3/uL (0.01-0.08); Eosinophil (Absolute #) 0.02 x10^3/uL (0.04-0.36); Hematocrit 36.5 % (34.1-44.9); Hemoglobin 11.7 g/dL (11.2-15.7); IMMATURE GRAN # 0.06 x10^3u/L (0.001-0.031); IMMATURE GRAN % 0.3 % (0.001-0.429); Lymphocyte (Absolute #) 0.97 x10^3/uL (1.18-3.74); Mean Corpuscular Hemoglobin 31.5 pg (25.6-32.2); Mean Corpuscular Hgb Concent. 32.1 g/dL (32.2-35.5); Monocyte (Absolute #) 1.67 x10^3/uL (0.24-0.86); NUCLEATED RBC # 0.00 x10^3u/L (0.00-0.012); NUCLEATED RBC % 0.0 % (0.00-0.2); Platelet Count 307 x10^3/uL (182-369); Red Blood Count 3.71 x10^6/uL (3.93-5.22); White Blood Count 19.4 x10^3/uL (3.98-10.04)
[2025-05-16 20:10] LABS: Calcium 9.2 mg/dL (8.4-10.2); Carbon Dioxide 31.0 mmol/L (22-30); Creatinine 1 0.55 mg/dL (0.52-1.04); EST GLOMERULAR FILTRATION RATE 102.3 ML/MIN; Glucose 85.0 mg/dL (74-106); Potassium 4.1 mmol/L (3.5-5.1); SGOT/AST 20.0 U/L (14-36); SGPT/ALT 16.0 U/L (0-35); Total Protein 6.7 g/dL (6.3-8.2)
[2025-05-16] MEDS ORDERED: VANCOMYCIN 1 GRAM/200 ML BAG 1 GM/200 ML PIGGYBACK IV ONE (20:39)
[2025-05-16] MEDS: VANCOMYCIN 1 GRAM/200 ML BAG 1 GM/200 ML PIGGYBACK IV ONE (20:41)
[2025-05-16 20:53] LABS: Glucose, Urine Negative (Negative); Protein,Urine Dip 30 (Negative)
[2025-05-16 20:57] LABS: VBG BASE EXCESS 11.7 (-2.0-2.0); VBG FIO2 21.0 %; VBG HCO3- 37.1 meq/L (22-28); VBG HEMOGLOBIN 12.0; VBG O2 SATURATION 43.4 (95-100); VBG PCO2 51.0 mm/Hg (42-55); VBG PO2 25.0 mm/Hg (25-40); VBG POTASSIUM 4.1 (3.5-5.1)
[2025-05-16 20:58] LABS: VBG CARBOXYHEMOGLOBIN 7.6 % T HGB (0.0-6.9)
[2025-05-16 21:09] LABS: Amphetamine,Urine NEGATIVE (NEGATIVE); Barbiturate,Urine NEGATIVE (NEGATIVE); Benzodiazepine,Urine NEGATIVE (NEGATIVE); Cocaine,Urine NEGATIVE (NEGATIVE); Methadone,Urine NEGATIVE (NEGATIVE); PCP,Urine NEGATIVE (NEGATIVE)
[2025-05-16 22:30] LABS: Opiate,Urine POSITIVE (NEGATIVE); THC,Urine POSITIVE (NEGATIVE)
[2025-05-16] MEDS ORDERED: TYLENOL 325 MG ONE (23:02)
[2025-05-16] MEDS: TYLENOL 325 MG PO STA (23:03)
[2025-05-16] MEDS ORDERED: DUONEB 0.5-3 MG/3 ml Neb IH ONE (23:22)
[2025-05-16] MEDS: DUONEB 0.5-3 MG/3 ml Neb IH ONE (23:25)
[2025-05-17] MEDS ORDERED: Zofran 4 MG/2 ML VIAL IV PRN (00:49)
--- NOTE | 2025-05-17 00:59 | PCM.HP ---
History of Present Illness - Chief Complaint Chief Complaint: RLL PNEUMONIA Date: 05/17/25 History of Present Illness: is a 64 year old female who presents complaining of diarrhea and SOB. She reports being hospitalized around [facility] for SBO that resolved with conservative management. She has been battling pneumonia for the last few months and had increasing SOB for the last two days. she denies fever or chills at home. She has had a nonproductive cough. no chest pain. She does use oxygen as needed at home. She currently is on 4L NC. she also has a sacral wound which has become worse recently. CT of abdoment did reveal lung infiltrate. In the ED she was started on Merrem and vancomycin for pneumonia. - Review of Systems Constitutional: Fever, Chills Eyes: No Symptoms Ears, Nose, & Throat: No Symptoms Respiratory: Cough, Short Of Breath Cardiac: No Symptoms Abdominal/Gastrointestinal: Diarrhea, No Nausea, No Vomiting Genitourinary Symptoms: No Symptoms Musculoskeletal: No Symptoms Skin: No Symptoms Neurological: No Symptoms Psychological: No Symptoms Endocrine: No Symptoms Hematologic/Lymphatic: No Symptoms Immunological/Allergic: No Symptoms Medications & Allergies Home Medications: Home Medication List Nitrofurantoin Monohyd/M-Cryst [Macrobid 100 mg Capsule] 100 mg PO DAILY 02/18/20 [History Confirmed 05/16/25] Pregabalin [Lyrica 150Mg] 150 mg PO TID 02/18/20 [History Confirmed 05/16/25] Tizanidine HCl 4 mg [Zanaflex 4 MG] 4 mg PO DAILY 05/16/25 [History Confirmed 05/16/25] Allergies/Adverse Reactions: Allergies Allergy/AdvReac Type Severity Reaction Status Date / Time amoxicillin AdvReac Intermediate Diarrhea Verified 05/16/25 18:55 sulfamethoxazole AdvReac Intermediate Vomiting Verified 05/16/25 18:54 [From Bactrim] trimethoprim [From Bactrim] AdvReac Intermediate Vomiting Verified 05/16/25 18:54 - Past Medical History Past Medical History: Yes Neurological History: No Pertinent History, Paralysis ENT History: Cataracts Cardiac History: No Pertinent History, Angina, Hypertension Respiratory History: No Pertinent History, Pneumonia Endocrine Medical History: No Pertinent History Musculoskelatal History: Arthritis GI Medical History: Irritable Bowel, Other History: Other Comment: multiple UTI/kidney infections, MS. bowel blockage - Past Surgical History Past Surgical History: Yes Neuro Surgical History: No Pertinent History Cardiac History: No Pertinent History Respiratory Surgery: No Pertinent History GI Surgical History: No Pertinent History Genitourinary Surgical Hx: No Pertinent History Musculskeletal Surgical Hx: No Pertinent History Female Surgical History: Hysterectomy - Social History Smoking Status: Current every day smoker How long have you smoked: 44 years Exposure to second hand smoke: Yes Alcohol: None Drug Use: none - Social Determinants of Health Will the patient participate in the screening: Declined to provide - Physical Exam Vital Signs: Vital Signs - 24 hr Temp Pulse Resp BP BP Pulse Ox 05/17/25 00:12 97 05/16/25 23:25 118 H 24 95 05/16/25 23:00 116 H 24 106/50 94 L 05/16/25 22:18 100.2 F 118 H 20 103/49 95 05/16/25 22:10 100.2 F 118 H 23 96/52 96 05/16/25 22:00 100.2 F 117 H 12 99 05/16/25 21:50 100.2 F 115 H 14 97 05/16/25 21:40 100.2 F 118 H 12 97 05/16/25 21:30 100.0 F 120 H 22 96 05/16/25 21:20 100.0 F 126 H 33 H 98 05/16/25 21:10 99.9 F 122 H 22 94 L 05/16/25 21:00 99.9 F 125 H 23 96/54 93 L 05/16/25 20:50 125 H 21 92 L 05/16/25 20:46 124 H 25 H 88 L 05/16/25 20:20 123 H 21 96 05/16/25 20:12 123 H 7 L 98/53 99 05/16/25 19:10 123 H 20 89/43 97 05/16/25 19:00 135 H 18 106/53 96 05/16/25 18:59 96 05/16/25 18:44 100 F 136 H 18 119/52 97 General Appearance: no apparent distress, alert Neurologic Exam: alert, oriented x 3 Eye Exam: PERRL/EOMI, No scleral icterus Ears, Nose, Throat Exam: normal ENT inspection Neck Exam: normal inspection, non-tender Respiratory Exam: diminished breath sounds, No respiratory distress, No rhonchi, No wheezing Cardiovascular Exam: regular rate/rhythm, normal heart sounds Gastrointestinal/Abdomen Exam: soft, normal bowel sounds, No tenderness, No distention Extremity Exam: normal inspection, normal range of motion Skin Exam: normal color, warm, dry Results - Labs Lab/Micro Results: Lab Results-Last 24 Hours 05/16/25 05/16/25 05/16/25 Range/Units 19:03 19:04 19:51 WBC 19.4 H (3.98-10.04) x10^3/uL RBC 3.71 L (3.93-5.22) x10^6/uL Hgb 11.7 (11.2-15.7) g/dL Hct 36.5 (34.1-44.9) % MCV 98.4 H (79.4-94.8) fL MCH 31.5 (25.6-32.2) pg MCHC 32.1 L (32.2-35.5) g/dL RDW 14.4 (11.7-14.4) % Plt Count 307 (182-369) x10^3/uL MPV 10.3 (9.4-12.3) fL Gran % 85.8 H (34.0-71.1) % Immature Gran % (Auto) 0.3 (0.001-0.429) % Nucleat RBC Rel Count 0.0 (0.00-0.2) % Eos # (Auto) 0.02 L (0.04-0.36) x10^3/uL Immature Gran # (Auto) 0.06 H (0.001-0.031) x10^3u/L Absolute Lymphs (auto) 0.97 L (1.18-3.74) x10^3/uL Absolute Monos (auto) 1.67 H (0.24-0.86) x10^3/uL Absolute Nucleated RBC 0.00 (0.00-0.012) x10^3u/L Lymphocytes % 5.0 L (19.3-51.7) % Monocytes % 8.6 (4.7-12.5) % Eosinophils % 0.1 L (0.7-5.8) % Basophils % 0.2 (0.1-1.2) % Absolute Granulocytes 16.63 H (1.56-6.13) x10^3/uL Basophils # 0.03 (0.01-0.08) x10^3/uL pO2/FiO2 Ratio 21.0 % VBG pH 7.47 H (7.32-7.42) VBG pCO2 at Pat Temp 51 (42-55) mm/Hg VBG pO2 at Pat Temp 25 (25-40) mm/Hg VBG HCO3 37.1 H* (22-28) meq/L VBG O2 Sat (Yoshi) 43.4 L (95-100) VBG Base Excess 11.7 H (-2.0-2.0) VBG Hemoglobin 12.0 VBG Carboxyhemoglobin 7.6 H* (0.0-6.9) % T HGB POC Potassium 4.1 (3.5-5.1) Sodium (135-145) mmol/L Potassium (3.5-5.1) mmol/L Chloride (98-107) mmol/L Carbon Dioxide (22-30) mmol/L Anion Gap (5-15) MEQ/L BUN (7-17) mg/dL Creatinine (0.52-1.04) mg/dL Estimated GFR ML/MIN Glucose (74-106) mg/dL Lactic Acid 1.3 (0.4-2.0) Calcium (8.4-10.2) mg/dL Total Bilirubin (0.2-1.3) mg/dL AST (14-36) U/L ALT (0-35) U/L Alkaline Phosphatase (38-126) U/L Serum Total Protein (6.3-8.2) g/dL Albumin (3.5-5.0) g/dL Lipase (23-300) U/L Procalcitonin (0.030-0.080) ng/mL Urine Color (Yellow) Urine Appearance (Clear) Urine pH (4.6-8.0) Ur Specific [place] (1.005-1.030) Urine Protein (Negative) Urine Glucose (UA) (Negative) mg/dL Urine Ketones (Negative) Urine Blood (Negative) Urine Nitrite (Negative) Urine Bilirubin (Negative) Urine Urobilinogen (0.2) mg/dL Ur Leukocyte Esterase (Negative) U Hyaline Cast (Auto) (0-2) /LPF Urine Microscopic RBC (0-5) /HPF Urine Microscopic WBC (0-5) /HPF Ur Epithelial Cells (None Seen) /HPF Urine Bacteria (None Seen) /HPF Urine Culture Reflexed (NO) Urine Opiates Level (NEGATIVE) Ur Methadone (NEGATIVE) Urine Barbiturates (NEGATIVE) Ur Phencyclidine (PCP) (NEGATIVE) Urine Amphetamine (NEGATIVE) U Benzodiazepine Level (NEGATIVE) Urine Cocaine (NEGATIVE) Urine Marijuana (THC) (NEGATIVE) 05/16/25 05/16/25 05/16/25 Range/Units 19:51 19:51 20:17 WBC (3.98-10.04) x10^3/uL RBC (3.93-5.22) x10^6/uL Hgb (11.2-15.7) g/dL Hct (34.1-44.9) % MCV (79.4-94.8) fL MCH (25.6-32.2) pg MCHC (32.2-35.5) g/dL RDW (11.7-14.4) % Plt Count (182-369) x10^3/uL MPV (9.4-12.3) fL Gran % (34.0-71.1) % Immature Gran % (Auto) (0.001-0.429) % Nucleat RBC Rel Count (0.00-0.2) % Eos # (Auto) (0.04-0.36) x10^3/uL Immature Gran # (Auto) (0.001-0.031) x10^3u/L Absolute Lymphs (auto) (1.18-3.74) x10^3/uL Absolute Monos (auto) (0.24-0.86) x10^3/uL Absolute Nucleated RBC (0.00-0.012) x10^3u/L Lymphocytes % (19.3-51.7) % Monocytes % (4.7-12.5) % Eosinophils % (0.7-5.8) % Basophils % (0.1-1.2) % Absolute Granulocytes (1.56-6.13) x10^3/uL Basophils # (0.01-0.08) x10^3/uL pO2/FiO2 Ratio % VBG pH (7.32-7.42) VBG pCO2 at Pat Temp (42-55) mm/Hg VBG pO2 at Pat Temp (25-40) mm/Hg VBG HCO3 (22-28) meq/L VBG O2 Sat (Yoshi) (95-100) VBG Base Excess (-2.0-2.0) VBG Hemoglobin VBG Carboxyhemoglobin (0.0-6.9) % T HGB POC Potassium (3.5-5.1) Sodium 138 (135-145) mmol/L Potassium 4.1 (3.5-5.1) mmol/L Chloride 100 (98-107) mmol/L Carbon Dioxide 31 H (22-30) mmol/L Anion Gap 10.3 (5-15) MEQ/L BUN 15 (7-17) mg/dL Creatinine 0.55 (0.52-1.04) mg/dL Estimated GFR 102.3 ML/MIN Glucose 85 (74-106) mg/dL Lactic Acid (0.4-2.0) Calcium 9.2 (8.4-10.2) mg/dL Total Bilirubin 0.30 (0.2-1.3) mg/dL AST 20 (14-36) U/L ALT 16 (0-35) U/L Alkaline Phosphatase 68 (38-126) U/L Serum Total Protein 6.7 (6.3-8.2) g/dL Albumin 3.3 L (3.5-5.0) g/dL Lipase 57 (23-300) U/L Procalcitonin 0.108 H (0.030-0.080) ng/mL Urine Color Dark Yellow A (Yellow) Urine Appearance Turbid A (Clear) Urine pH 7.0 (4.6-8.0) Ur Specific [place] 1.020 (1.005-1.030) Urine Protein 30 (Negative) Urine Glucose (UA) Negative (Negative) mg/dL Urine Ketones Negative (Negative) Urine Blood NHT (Negative) Urine Nitrite Negative (Negative) Urine Bilirubin Negative (Negative) Urine Urobilinogen 0.2 (0.2) mg/dL Ur Leukocyte Esterase Negative (Negative) U Hyaline Cast (Auto) 3-5 A (0-2) /LPF Urine Microscopic RBC 3-5 (0-5) /HPF Urine Microscopic WBC 6-10 A (0-5) /HPF Ur Epithelial Cells Rare (None Seen) /HPF Urine Bacteria None Seen (None Seen) /HPF Urine Culture Reflexed NO (NO) Urine Opiates Level (NEGATIVE) Ur Methadone (NEGATIVE) Urine Barbiturates (NEGATIVE) Ur Phencyclidine (PCP) (NEGATIVE) Urine Amphetamine (NEGATIVE) U Benzodiazepine Level (NEGATIVE) Urine Cocaine (NEGATIVE) Urine Marijuana (THC) (NEGATIVE) 05/16/25 Range/Units 20:18 WBC (3.98-10.04) x10^3/uL RBC (3.93-5.22) x10^6/uL Hgb (11.2-15.7) g/dL Hct (34.1-44.9) % MCV (79.4-94.8) fL MCH (25.6-32.2) pg MCHC (32.2-35.5) g/dL RDW (11.7-14.4) % Plt Count (182-369) x10^3/uL MPV (9.4-12.3) fL Gran % (34.0-71.1) % Immature Gran % (Auto) (0.001-0.429) % Nucleat RBC Rel Count (0.00-0.2) % Eos # (Auto) (0.04-0.36) x10^3/uL Immature Gran # (Auto) (0.001-0.031) x10^3u/L Absolute Lymphs (auto) (1.18-3.74) x10^3/uL Absolute Monos (auto) (0.24-0.86) x10^3/uL Absolute Nucleated RBC (0.00-0.012) x10^3u/L Lymphocytes % (19.3-51.7) % Monocytes % (4.7-12.5) % Eosinophils % (0.7-5.8) % Basophils % (0.1-1.2) % Absolute Granulocytes (1.56-6.13) x10^3/uL Basophils # (0.01-0.08) x10^3/uL pO2/FiO2 Ratio % VBG pH (7.32-7.42) VBG pCO2 at Pat Temp (42-55) mm/Hg VBG pO2 at Pat Temp (25-40) mm/Hg VBG HCO3 (22-28) meq/L VBG O2 Sat (Yoshi) (95-100) VBG Base Excess (-2.0-2.0) VBG Hemoglobin VBG Carboxyhemoglobin (0.0-6.9) % T HGB POC Potassium (3.5-5.1) Sodium (135-145) mmol/L Potassium (3.5-5.1) mmol/L Chloride (98-107) mmol/L Carbon Dioxide (22-30) mmol/L Anion Gap (5-15) MEQ/L BUN (7-17) mg/dL Creatinine (0.52-1.04) mg/dL Estimated GFR ML/MIN Glucose (74-106) mg/dL Lactic Acid (0.4-2.0) Calcium (8.4-10.2) mg/dL Total Bilirubin (0.2-1.3) mg/dL AST (14-36) U/L ALT (0-35) U/L Alkaline Phosphatase (38-126) U/L Serum Total Protein (6.3-8.2) g/dL Albumin (3.5-5.0) g/dL Lipase (23-300) U/L Procalcitonin (0.030-0.080) ng/mL Urine Color (Yellow) Urine Appearance (Clear) Urine pH (4.6-8.0) Ur Specific [place] (1.005-1.030) Urine Protein (Negative) Urine Glucose (UA) (Negative) mg/dL Urine Ketones (Negative) Urine Blood (Negative) Urine Nitrite (Negative) Urine Bilirubin (Negative) Urine Urobilinogen (0.2) mg/dL Ur Leukocyte Esterase (Negative) U Hyaline Cast (Auto) (0-2) /LPF Urine Microscopic RBC (0-5) /HPF Urine Microscopic WBC (0-5) /HPF Ur Epithelial Cells (None Seen) /HPF Urine Bacteria (None Seen) /HPF Urine Culture Reflexed (NO) Urine Opiates Level POSITIVE A (NEGATIVE) Ur Methadone NEGATIVE (NEGATIVE) Urine Barbiturates NEGATIVE (NEGATIVE) Ur Phencyclidine (PCP) NEGATIVE (NEGATIVE) Urine Amphetamine NEGATIVE (NEGATIVE) U Benzodiazepine Level NEGATIVE (NEGATIVE) Urine Cocaine NEGATIVE (NEGATIVE) Urine Marijuana (THC) POSITIVE A (NEGATIVE) - Radiology Impressions Radiology Exams & Impressions: Radiology Procedures Category Date Time Status ABDOMEN AND PELVIS W CONTRAST [CT] Stat Exams 05/16/25 19:03 Taken - Other Procedures and Tests Respiratory Therapy 05/16/25 23:28 Respiratory Therapy Assessment DAILY 05/17/25 00:34 Oxygen Nasal Cannula 2 lpm Respiratory Therapy Consult ONCE Assessment/Plan (1) Right lower lobe pneumonia Current Visit: Yes Status: Acute Assessment & Plan: Continue Merrem and Vancom[facility] Code(s): J18.9 - PNEUMONIA, UNSPECIFIED ORGANISM (2) Sacral decubitus ulcer Current Visit: Yes Status: Acute Assessment & Plan: Merrem and Vancomycin ordered for antibiotic therapy Wound Care to eval Code(s): L89.159 - PRESSURE ULCER OF SACRAL REGION, UNSPECIFIED STAGE Telemedicine Encounter - Telemedicine Encounter Telemedicine Encounter: "The entirety of this encounter was performed via Telemedicine" This visit was performed using real-time audio and video connection between my location and thepatients locationwith the assistance of a surrogateat the patients location. Written or verbal consent was obtained from the patient/guardian to perform this visit using[facility] technology. Any patient questions regarding the telemedicine interaction were answered.
[2025-05-17] MEDS: VANCOMYCIN 1 GRAM/200 ML BAG 1 GM/200 ML PIGGYBACK IV SCH (01:53)
[2025-05-17] MEDS: DUONEB 0.5-3 MG/3 ml Neb IH SCH (03:23)
[2025-05-17 05:17] LABS: Hematocrit 28.8 % (34.1-44.9); Hemoglobin 8.9 g/dL (11.2-15.7); Mean Corpuscular Hemoglobin 30.8 pg (25.6-32.2); Mean Corpuscular Hgb Concent. 30.9 g/dL (32.2-35.5); Platelet Count 261 x10^3/uL (182-369); Red Blood Count 2.89 x10^6/uL (3.93-5.22); White Blood Count 11.8 x10^3/uL (3.98-10.04)
[2025-05-17 06:07] LABS: Calcium 8.0 mg/dL (8.4-10.2); Carbon Dioxide 27.0 mmol/L (22-30); Creatinine 1 0.29 mg/dL (0.52-1.04); EST GLOMERULAR FILTRATION RATE 119.4 ML/MIN; Glucose 91.0 mg/dL (74-106); Potassium 3.8 mmol/L (3.5-5.1)
[2025-05-17] MEDS: Merrem 1 GM in Sodium Chloride 0.9% 100 ML IV SCH ×2 (06:24→13:24)
--- NOTE | 2025-05-17 08:09 | XRAY ---
Indication: Pain. Multiple contiguous axial images obtained through the abdomen and pelvis using 80 cc Isovue 370 contrast. Comparison: None Lung bases demonstrates incompletely visualized right middle lobe atelectasis . Right lower lobe demonstrates mild scattered interstitial alveolar opacities and posterior curvilinear subsegmental atelectasis/scarring. No effusion. Heart not enlarged. Noncontrasted stomach and bowel loops appear nonobstructed. There is mild diffuse scattered colonic fecal debris throughout. Mild biliary tree prominence. Minimally distended urinary bladder demonstrates Huber balloon catheter in Situ with intraluminal air bubbles. Hysterectomy reported. No free fluid/air. Remaining liver, gallbladder, pancreas, spleen, adrenal glands, kidneys, ureters, and bladder are unremarkable. Mild scattered aortoiliac calcifications. No AAA or pathologic retroperitoneal lymphadenopathy. Osseous structures intact with osteopenia and minimal elongated levoscoliosis. No ventral or inguinal hernias. Impression: 1. Incompletely visualized right middle lobe atelectasis. Also mild right lower lobe interstitial alveolar opacities. Rule out pneumonia/pneumonitis. 2. Mild diffuse colonic fecal stasis. 3. Mild biliary tree prominence. MRCP/ERCP may yield further information if there is clinical concern. 4. Chronic findings including arteriosclerotic disease and chronic bony findings.
[2025-05-17] MEDS: Zanaflex 4 MG PO SCH (10:02)
[2025-05-17] MEDS: Acidophilus TABLET PO SCH (10:02)
[2025-05-17] MEDS: ENOXAPARIN SODIUM SQ SCH (10:03)
[2025-05-17] MEDS: LYRICA 150MG PO SCH (10:04)
--- NOTE | 2025-05-17 10:16 | XRAY ---
CLINICAL HISTORY: SOB COMPARISON: None TECHNIQUE: A chest X-ray was performed in AP portable projection. FINDINGS: A right-sided central catheter is seen ending within the SVC. Hazy opacification of the right lower lung zone, suggesting pulmonary infiltrates or atelectasis. Blunting of the right costophrenic angle, likely due to a mild effusion. A calcified lymph node is noted in the mediastinum. Normal configuration of the mediastinum. The yamil are normal in size and position. The cardiac size is normal. The bony thorax shows degenerative changes. IMPRESSION: 1. A right-sided central catheter is seen ending within the SVC. 2. Hazy opacification of the right lower lung zone, suggesting pulmonary infiltrates or atelectasis. Correlate clinically. 3. Blunting of the right costophrenic angle, likely due to a mild effusion. Electronically Signed by: Pancho Holland MD. (05/17/2025 10:14:12 EST)
[2025-05-17] MEDS: VANCOCIN 500 MG VIAL*** 500 MG in Sodium Chloride 100ML MINI-BAG PLUS 100 ML IV SCH (13:56)
[2025-05-17] MEDS: Lasix 20 MG/2 ML IV ONE (17:35)
[2025-05-18 02:32] LABS: A-aADO2 604; ABG HEMOGLOBIN 10.9; ABG POTASSIUM 3.9 (3.5-5.1); ABG SITE LEFT RADIAL; ARTERIAL BLD GAS O2 SATURATION 93.9 % (95-100); ARTERIAL BLOOD GAS BASE EXCESS 6.6 (-2.0-2.0); ARTERIAL BLOOD GAS FIO2 100 %; ARTERIAL BLOOD GAS PCO2 40 mmHg (35-45); ARTERIAL BLOOD GAS PO2 59 mmHg (75-100); ARTERIAL BLOOD GAS TEMPERATURE 37.0 C; HCO3- 30.5 (22-28); HGB O2 SAT 91.5 g/dF (94-100); Methhemoglobin 1.2 % (1.4-1.5); paO2 pAO1 0.09
[2025-05-18 02:33] LABS: ALLEN TEST OK? YES
[2025-05-18] MEDS: TYLENOL 325 MG PO PRN (03:10)
[2025-05-18 06:13] LABS: Calcium 8.0 mg/dL (8.4-10.2); Carbon Dioxide 29.0 mmol/L (22-30); Creatinine 1 0.29 mg/dL (0.52-1.04); EST GLOMERULAR FILTRATION RATE 119.4 ML/MIN; Glucose 104.0 mg/dL (74-106); Potassium 3.6 mmol/L (3.5-5.1); Total Protein 5.1 g/dL (6.3-8.2)
[2025-05-18 06:14] LABS: SGOT/AST 16.0 U/L (14-36); SGPT/ALT 10.0 U/L (0-35)
[2025-05-18 06:16] LABS: Hematocrit 26.5 % (34.1-44.9); Hemoglobin 8.5 g/dL (11.2-15.7); Mean Corpuscular Hemoglobin 31.3 pg (25.6-32.2); Mean Corpuscular Hgb Concent. 32.1 g/dL (32.2-35.5); Platelet Count 175 x10^3/uL (182-369); Red Blood Count 2.72 x10^6/uL (3.93-5.22); White Blood Count 12.9 x10^3/uL (3.98-10.04)
[2025-05-18] MEDS: solu-MEDROL 40 MG, Sterile H2O 10 ml 1 ML IV SCH (08:31)
[2025-05-18 08:59] LABS: Iron 25 ug/dL (37-170); TIBC 180 ug/dL (265-462)
--- NOTE | 2025-05-18 09:54 | XRAY ---
CLINICAL HISTORY: pneumonia COMPARISON: 05/17/2025 TECHNIQUE: An X-ray image of the chest was obtained in AP portable projection. FINDINGS: The study is limited due to the oblique position of the patient. Pulmonary Parenchyma: A right-sided port catheter is seen ending within the SVC. Hazy opacification of both lower lung zones, Not seen in the current study. Blunting of both costophrenic angles, Stable, likely due to a mild effusion/thickening. No evidence of consolidation, collapse, or focal opacities. No pulmonary nodules are identified. No evidence of left pleural effusion or pleural thickening. Heart and Mediastinum: The heart size and shape are normal. No mediastinal widening or masses. No hilar or mediastinal lymphadenopathy. A calcified lymph node is noted in the mediastinum. Bony Thorax: The bony thorax shows degenerative changes. Soft Tissues: The soft tissues overlying the chest wall are unremarkable. IMPRESSION: 1. Hazy opacification of both lower lung zones, Not seen in the current study. 2. Blunting of both costophrenic angles, Stable, likely due to a mild effusion/thickening. 3. A right-sided port catheter is seen ending within the SVC. unchanged. Electronically Signed by: Pancho Holland MD. (05/18/2025 09:52:28 EST)
[2025-05-18 09:55] LABS: Ferritin 35.8 ng/mL (11.1-264)
--- NOTE | 2025-05-18 10:29 | PCM.NOTE ---
Date and Time: 05/18/25 1013 Subjective Assessment: is a The patient is a 64 year old female with a past medical history of multiple sclerosis, irritable bowel syndrome, hypertension, cataracts, daily tobacco use, and a chronic sacral wound who presented on 05/17/25 with complaints of diarrhea and shortness of breath. She was recently hospitalized around [facility] for a small bowel obstruction that resolved with conservative management at [facility]. She reports battling pneumonia for several months, with worsening shortness of breath over the past two days. She denies fever, chills, chest pain, or productive cough, though she does use oxygen as needed at home. On admission, she was on 4 L nasal cannula with oxygen saturation of 96%. CT of the abdomen revealed incompletely visualized right middle lobe atelectasis with mild right lower lobe opacities concerning for pneumonia or pneumonitis, mild diffuse colonic fecal stasis, mild biliary tree prominence, and chronic findings including arteriosclerotic disease and bony changes. She was started on Merrem and vancomycin for pneumonia. Chest x-ray on 05/17 showed hazy opacification of the right lower lung zone with blunting of the right costophrenic angle, likely due to mild effusion. Overnight, she became increasingly short of breath, and repeat chest x-ray demonstrated hazy opacification of both lower lung zones with stable blunting of both costophrenic angles. CTA was ordered for further evaluation. Staff noted that she chokes and coughs when eating, so her diet was changed to soft foods with honey-thickened liquids, and a barium swallow is planned for further assessment tomorrow. An MRCP is also scheduled to evaluate the mild biliary tree prominence seen on CT. Her white blood cell count improved to 12.9, hemoglobin is stable at 8.9, and occult stool and C. difficile testing are pending. She reports no diarrhea since admission, consistent with fecal stasis seen on CT, and Colace was started twice daily. Physical therapy will evaluate her chronic sacral wound and develop a plan of care. Currently, she is on high flow oxygen at 31% with saturation of 95%, she continues to have coarse lung sounds and increased shortness of breath. She frequently requires assistance from staff and uses her call light often. Given her MS related weakness and functional decline, she will require placement at discharge. She reports that she has someone who visits daily to bring her food, but PT and OT evaluations are planned to assess her needs further. <LEVI SCHUMACHER - Last Filed: 05/18/25 10:13> Date and Time: 05/18/25 1308 <JULIO CÉSARSOHEILA - Last Filed: 05/18/25 13:08> - Review of Systems Constitutional: Weakness, Other, No Fever, No Chills Eyes: No Symptoms Ears, Nose, & Throat: No Symptoms Respiratory: Cough, Short Of Breath Cardiac: No Chest Pain, No Edema, No Syncope Abdominal/Gastrointestinal: Constipation, No Abdominal Pain, No Nausea, No Vomiting, No Diarrhea Genitourinary Symptoms: No Dysuria Musculoskeletal: Other (Contractures of arms and legs), No Back Pain, No Neck Pain Skin: Skin Lesions (sacrum), Other, No Rash Neurological: Focal Weakness, No Dizziness, No Sensory Changes Psychological: No Symptoms, Drug Abuse Endocrine: No Symptoms Hematologic/Lymphatic: No Symptoms Immunological/Allergic: No Symptoms <LEVI SCHUMACHER - Last Filed: 05/18/25 10:13> Objective Exam General Appearance: no apparent distress, alert, cachetic, thin Neurologic Exam: alert, oriented x 3, cooperative, normal mood/affect, nml cerebellar function, sensation nml, motor weakness, No motor deficits Skin Exam: normal color, warm, dry, other (unstageable sacral wound) Wound Assessment: Skin/Wound Assessment Wound/Incision Assessment Start: 05/17/25 01:14 Text: Status: Active Freq: Q6H Protocol: Document 05/18/25 08:10 DS (Rec: 05/18/25 08:10 DS [id number]) Wound/Incision Assessment Medial Buttock Wound Assessment Shift Assessment Wound Type Pressure Ulcer Wound Stage Unstageable Dressing Status Changed Drainage Amount Moderate Drainage Description Yellow Drainage Odor None/Absent General Appearance Reddened,Draining,Bone Visible Length (cm) (cm) 8 Width (cm) (cm) 6 Wound Bed Greatest Portion Yellow (Slough),Black (Eschar) Wound Bed Lesser Portion Pale [place] Surrounding Tissue [place],Blanched/Dull,Edges Rolled Primary Dressing Dressing foam Comment redressed would with mepalex. clean dry and intact Wound Photo Photo Taken No Eye Exam: PERRL, EOMI, eyes nml inspection Ears, Nose, Throat Exam: normal ENT inspection, pharynx normal, moist mucous membranes Neck Exam: normal inspection, non-tender, supple, full range of motion Respiratory Exam: crackles/rales, No respiratory distress Cardiovascular Exam: regular rate/rhythm, normal heart sounds, tachycardia, edema (BLLE) Gastrointestinal/Abdomen Exam: soft, No tenderness, No mass Extremity Exam: normal inspection, normal range of motion Back Exam: normal inspection, normal range of motion, No CVA tenderness, No vertebral tenderness Pelvic Exam: deferred Rectal Exam: deferred <LEVI SCHUMACHER - Last Filed: 05/18/25 10:13> Wound Assessment: Skin/Wound Assessment Wound/Incision Assessment Start: 05/17/25 01:14 Text: Status: Active Freq: Q6H Protocol: Document 05/18/25 08:10 DS (Rec: 05/18/25 08:10 DS [id number]) Wound/Incision Assessment Medial Buttock Wound Assessment Shift Assessment Wound Type Pressure Ulcer Wound Stage Unstageable Dressing Status Changed Drainage Amount Moderate Drainage Description Yellow Drainage Odor None/Absent General Appearance Reddened,Draining,Bone Visible Length (cm) (cm) 8 Width (cm) (cm) 6 Wound Bed Greatest Portion Yellow (Slough),Black (Eschar) Wound Bed Lesser Portion Pale [place] Surrounding Tissue [place],Blanched/Dull,Edges Rolled Primary Dressing Dressing foam Comment redressed would with mepalex. clean dry and intact Wound Photo Photo Taken No <SOHEILA SHERMAN - Last Filed: 05/18/25 13:08> Objective Data Vital Signs: Vital Signs - 24 hr Temp Pulse Resp BP Pulse Ox 05/18/25 06:41 111 H 18 95 05/18/25 06:35 97.8 F 81 18 95/53 99 05/18/25 04:00 97.8 F 110 H 33 H 114/52 95 05/18/25 03:45 95 05/18/25 00:00 98.5 F 101 H 18 106/51 91 L 05/17/25 20:02 98.5 F 70 16 100/50 95 05/17/25 19:37 108 H 16 96 05/17/25 17:33 112 H 96/54 05/17/25 15:12 98.4 F 102 H 16 105/52 92 L 05/17/25 13:25 108 H 18 94 L 05/17/25 12:52 116 H 92/54 05/17/25 11:33 97.6 F 110 H 16 98/52 91 L Pain Assessment - Last Documented Pain Intensity 7 Pain Scale Used 0-10 Pain Scale Intake and Output: Intake & Output 05/15/25 05/16/25 05/17/25 05/18/25 11:59 11:59 11:59 11:59 Intake Total 240 1010 Output Total 150 675 Balance 90 335 Weight 39.2 kg Lab Results: Lab Results-Last 24 Hours 05/18/25 05/18/25 05/18/25 Range/Units 02:27 05:33 05:33 WBC 12.9 H (3.98-10.04) x10^3/uL RBC 2.72 L (3.93-5.22) x10^6/uL Hgb 8.5 L (11.2-15.7) g/dL Hct 26.5 L (34.1-44.9) % MCV 97.4 H (79.4-94.8) fL MCH 31.3 (25.6-32.2) pg MCHC 32.1 L (32.2-35.5) g/dL RDW 14.3 (11.7-14.4) % Plt Count 175 L (182-369) x10^3/uL MPV 11.1 (9.4-12.3) fL Puncture Site LEFT RADIAL pCO2 40 (35-45) mmHg pO2 59 L (75-100) mmHg Base Excess 6.6 H (-2.0-2.0) O2 Saturation 91.5 L (94-100) g/dF ABG pH 7.49 H (7.35-7.45) ABG HCO3 30.5 H* (22-28) ABG O2 Sat (Measured) 93.9 L (95-100) % Hans Test YES A-a Gradient 604 a/A Ratio 0.09 Hemoglobin 10.9 Carboxyhemoglobin 1.5 (0.0-6.9) % THgb Methemoglobin 1.2 L (1.4-1.5) % Potassium 3.9 3.6 (3.5-5.1) Temperature 37.0 C POC O2 Flow Rate 100 % Sodium 137 (135-145) mmol/L Chloride 106 (98-107) mmol/L Carbon Dioxide 29 (22-30) mmol/L Anion Gap 5.6 (5-15) MEQ/L BUN 10 (7-17) mg/dL Creatinine 0.29 L (0.52-1.04) mg/dL Estimated GFR 119.4 ML/MIN Glucose 104 (74-106) mg/dL Calcium 8.0 L (8.4-10.2) mg/dL Iron (37-170) ug/dL TIBC (265-462) ug/dL Iron Saturation (20-39) % Ferritin (11.1-264) ng/mL Total Bilirubin 0.30 (0.2-1.3) mg/dL AST 16 (14-36) U/L ALT 10 (0-35) U/L Alkaline Phosphatase 49 (38-126) U/L Serum Total Protein 5.1 L (6.3-8.2) g/dL Albumin 2.4 L (3.5-5.0) g/dL Vitamin B12 (239-931) pg/mL Folic Acid (2.76 - >20) ng/mL 05/18/25 05/18/25 Range/Units 05:33 05:33 WBC (3.98-10.04) x10^3/uL RBC (3.93-5.22) x10^6/uL Hgb (11.2-15.7) g/dL Hct (34.1-44.9) % MCV (79.4-94.8) fL MCH (25.6-32.2) pg MCHC (32.2-35.5) g/dL RDW (11.7-14.4) % Plt Count (182-369) x10^3/uL MPV (9.4-12.3) fL Puncture Site pCO2 (35-45) mmHg pO2 (75-100) mmHg Base Excess (-2.0-2.0) O2 Saturation (94-100) g/dF ABG pH (7.35-7.45) ABG HCO3 (22-28) ABG O2 Sat (Measured) (95-100) % Hans Test A-a Gradient a/A Ratio Hemoglobin Carboxyhemoglobin (0.0-6.9) % THgb Methemoglobin (1.4-1.5) % Potassium (3.5-5.1) Temperature C POC O2 Flow Rate % Sodium (135-145) mmol/L Chloride (98-107) mmol/L Carbon Dioxide (22-30) mmol/L Anion Gap (5-15) MEQ/L BUN (7-17) mg/dL Creatinine (0.52-1.04) mg/dL Estimated GFR ML/MIN Glucose (74-106) mg/dL Calcium (8.4-10.2) mg/dL Iron 25 L (37-170) ug/dL TIBC 180 L (265-462) ug/dL Iron Saturation 14 L (20-39) % Ferritin 35.8 (11.1-264) ng/mL Total Bilirubin (0.2-1.3) mg/dL AST (14-36) U/L ALT (0-35) U/L Alkaline Phosphatase (38-126) U/L Serum Total Protein (6.3-8.2) g/dL Albumin (3.5-5.0) g/dL Vitamin B12 342 (239-931) pg/mL Folic Acid 3.66 (2.76 - >20) ng/mL Radiology Exams: Radiology Procedures Category Date Time Status ABDOMEN AND PELVIS W CONTRAST [CT] Stat Exams 05/16/25 19:03 Completed CHEST 1 VIEW (PORTABLE) Stat Exams 05/17/25 07:58 Completed CHEST 1 VIEW (PORTABLE) Stat Exams 05/18/25 07:00 Completed CHEST W/WO CONTRAST [CT] Routine Exams 05/18/25 09:35 Ordered MODIFIED BARIUM SWALLOW (RAD) [MODIFIED BARIUM SWALLOW Exams 05/19/25 08:00 Ordered EXAM] Routine Medications: Medications Generic Name Dose Route Start Last Admin Trade Name Freq PRN Reason Stop Dose Admin Acetaminophen 650 mg 05/17/25 00:48 05/18/25 08:30 Acetaminophen 325 Mg Tablet PO 06/16/25 00:47 650 mg Q4H PRN PRN Administration PAIN AND/OR FEVER Albuterol/Ipratropium 3 ml 05/17/25 01:00 05/18/25 06:40 Ipratropium/Albuterol Sulfate 3 Ml Ampul.Neb IH 06/16/25 00:59 3 ml Q6HRT REBECCA Administration Methylprednisolone Sodium 0 mg 05/18/25 08:30 05/18/25 08:31 Succinate 40 mg/ Sterile Water IV 06/17/25 08:29 40 mg 1 ml Q8HT REBECCA Administration Device 1 05/18/25 13:30 Therapuetic Drug Level Monitor Each IJ 05/18/25 13:31 1XONLY ONE Enoxaparin Sodium 40 mg 05/17/25 10:00 05/18/25 09:00 Enoxaparin Sodium 40 Mg/0.4 Ml Syringe SQ 06/16/25 09:59 40 mg DAILY REBECCA Administration Meropenem 1 gm/ Sodium 100 mls @ 200 mls/hr 05/17/25 14:00 05/18/25 06:37 Chloride IV 05/20/25 13:59 200 mls/hr Q8HT REBECCA Administration Vancomycin HCl 500 mg/ Sodium 100 mls @ 100 mls/hr 05/17/25 14:00 05/18/25 07:38 Chloride IV 06/16/25 13:59 100 mls/hr Q8HT REBECCA Administration Lactobacillus Acidophilus 1 tab 05/17/25 10:00 05/18/25 09:00 Lactobacillus Acidophilus 1 Tab Tablet PO 06/16/25 09:59 1 tab DAILY REBECCA Administration Ondansetron HCl 4 mg 05/17/25 00:49 Ondansetron Hcl 4 Mg/2 Ml Vial IV 06/16/25 00:48 Q6H PRN PRN NAUSEA/VOMITING Pregabalin 150 mg 05/17/25 10:00 05/18/25 09:00 Pregabalin 150 Mg Capsule PO 06/16/25 09:59 150 mg TID REBECCA Administration Tizanidine HCl 4 mg 05/17/25 10:00 05/18/25 09:00 Tizanidine Hcl 4 Mg Tablet PO 06/16/25 09:59 4 mg DAILY REBECCA Administration Discontinued Medications Generic Name Dose Route Start Last Admin Trade Name Freq PRN Reason Stop Dose Admin Acetaminophen 650 mg 05/16/25 22:17 05/16/25 23:03 Acetaminophen 325 Mg Tablet PO 05/16/25 22:18 650 mg STAT STA Administration Acetaminophen Confirm 05/16/25 23:02 Acetaminophen 325 Mg Tablet Administered 05/16/25 23:03 Dose 650 mg .ROUTE .STK-MED ONE Albuterol/Ipratropium Confirm 05/16/25 23:22 Ipratropium/Albuterol Sulfate 3 Ml Ampul.Neb Administered 05/16/25 23:23 Dose 3 ml IH .STK-MED ONE Albuterol/Ipratropium 3 ml 05/16/25 23:24 05/16/25 23:25 Ipratropium/Albuterol Sulfate 3 Ml Ampul.Neb IH 05/16/25 23:25 3 ml STAT ONE Administration Furosemide 20 mg 05/17/25 11:23 05/17/25 17:35 Furosemide 20 Mg/Vial IV 05/17/25 11:24 Not Given STAT ONE Sodium Chloride 1,000 mls @ 999 mls/hr 05/16/25 19:03 05/16/25 20:35 Sodium Chloride 0.9% 1000 Ml IV 05/16/25 20:03 Infused .Q1H1M STA Infusion Vancomycin HCl 1 gm in 200 mls @ 125 mls/hr 05/16/25 19:04 05/16/25 20:41 Vancomycin 1 Gram/200 Ml Bag IV 05/16/25 20:39 125 mls/hr STAT ONE 125 mls/hr Administration Meropenem 1 gm/ Sodium 100 mls @ 200 mls/hr 05/16/25 19:04 05/16/25 20:11 Chloride IV 05/16/25 19:33 0 ml/hr STAT ONE 0 mls/hr Infusion Sodium Chloride Confirm 05/16/25 19:30 Sodium Chloride 0.9% Administered 05/16/25 19:31 Dose 100 mls @ ud .ROUTE .STK-MED ONE Sodium Chloride Confirm 05/16/25 19:30 Sodium Chloride 0.9% 1000 Ml Administered 05/16/25 19:31 Dose 1,000 mls @ ud .ROUTE .STK-MED ONE Vancomycin HCl Confirm 05/16/25 20:39 Vancomycin 1 Gram/200 Ml Bag Administered 05/16/25 20:40 Dose 1 gm in 200 mls @ ud IV .STK-MED ONE Meropenem 1 gm/ Sodium 100 mls @ 200 mls/hr 05/17/25 06:00 05/17/25 06:24 Chloride IV 05/20/25 05:59 200 mls/hr Q8HT REBECCA Administration Vancomycin HCl 1 gm in 200 mls @ 125 mls/hr 05/17/25 01:00 05/17/25 01:53 Vancomycin 1 Gram/200 Ml Bag IV 06/16/25 00:59 125 mls/hr Q24H REBECCA Administration Sodium Chloride Confirm 05/17/25 06:14 Sodium Chloride 0.9% Administered 05/17/25 06:15 Dose 100 mls @ ud .ROUTE .STK-MED ONE Meropenem Confirm 05/16/25 19:29 Meropenem 1 Gm Vial Administered 05/16/25 19:30 Dose 1 gm IV .STK-MED ONE Meropenem Confirm 05/17/25 06:12 Meropenem 1 Gm Vial Administered 05/17/25 06:13 Dose 1 gm IV .STK-MED ONE <LEVI SCHUMACHER - Last Filed: 05/18/25 10:13> Vital Signs: Vital Signs - 24 hr Temp Pulse Resp BP Pulse Ox 05/18/25 12:27 96 H 18 98 05/18/25 11:44 93 H 18 93 L 05/18/25 11:24 97.9 F 91 H 18 105/52 95 05/18/25 06:41 111 H 18 95 05/18/25 06:35 97.8 F 81 18 95/53 99 05/18/25 04:00 97.8 F 110 H 33 H 114/52 95 05/18/25 03:45 95 05/18/25 00:00 98.5 F 101 H 18 106/51 91 L 05/17/25 20:02 98.5 F 70 16 100/50 95 05/17/25 19:37 108 H 16 96 05/17/25 17:33 112 H 96/54 05/17/25 15:12 98.4 F 102 H 16 105/52 92 L 05/17/25 13:25 108 H 18 94 L Pain Assessment - Last Documented Pain Intensity 5 Pain Scale Used 0-10 Pain Scale Intake and Output: Intake & Output 05/16/25 05/17/25 05/18/25 05/19/25 11:59 11:59 11:59 11:59 Intake Total 240 1010 Output Total 150 675 Balance 90 335 Weight 39.2 kg Lab Results: Lab Results-Last 24 Hours 05/18/25 05/18/25 05/18/25 Range/Units 02:27 05:33 05:33 WBC 12.9 H (3.98-10.04) x10^3/uL RBC 2.72 L (3.93-5.22) x10^6/uL Hgb 8.5 L (11.2-15.7) g/dL Hct 26.5 L (34.1-44.9) % MCV 97.4 H (79.4-94.8) fL MCH 31.3 (25.6-32.2) pg MCHC 32.1 L (32.2-35.5) g/dL RDW 14.3 (11.7-14.4) % Plt Count 175 L (182-369) x10^3/uL MPV 11.1 (9.4-12.3) fL Puncture Site LEFT RADIAL pCO2 40 (35-45) mmHg pO2 59 L (75-100) mmHg Base Excess 6.6 H (-2.0-2.0) O2 Saturation 91.5 L (94-100) g/dF ABG pH 7.49 H (7.35-7.45) ABG HCO3 30.5 H* (22-28) ABG O2 Sat (Measured) 93.9 L (95-100) % Hans Test YES A-a Gradient 604 a/A Ratio 0.09 Hemoglobin 10.9 Carboxyhemoglobin 1.5 (0.0-6.9) % THgb Methemoglobin 1.2 L (1.4-1.5) % Potassium 3.9 3.6 (3.5-5.1) Temperature 37.0 C POC O2 Flow Rate 100 % Sodium 137 (135-145) mmol/L Chloride 106 (98-107) mmol/L Carbon Dioxide 29 (22-30) mmol/L Anion Gap 5.6 (5-15) MEQ/L BUN 10 (7-17) mg/dL Creatinine 0.29 L (0.52-1.04) mg/dL Estimated GFR 119.4 ML/MIN Glucose 104 (74-106) mg/dL Calcium 8.0 L (8.4-10.2) mg/dL Iron (37-170) ug/dL TIBC (265-462) ug/dL Iron Saturation (20-39) % Ferritin (11.1-264) ng/mL Total Bilirubin 0.30 (0.2-1.3) mg/dL AST 16 (14-36) U/L ALT 10 (0-35) U/L Alkaline Phosphatase 49 (38-126) U/L Serum Total Protein 5.1 L (6.3-8.2) g/dL Albumin 2.4 L (3.5-5.0) g/dL Vitamin B12 (239-931) pg/mL Folic Acid (2.76 - >20) ng/mL 05/18/25 05/18/25 Range/Units 05:33 05:33 WBC (3.98-10.04) x10^3/uL RBC (3.93-5.22) x10^6/uL Hgb (11.2-15.7) g/dL Hct (34.1-44.9) % MCV (79.4-94.8) fL MCH (25.6-32.2) pg MCHC (32.2-35.5) g/dL RDW (11.7-14.4) % Plt Count (182-369) x10^3/uL MPV (9.4-12.3) fL Puncture Site pCO2 (35-45) mmHg pO2 (75-100) mmHg Base Excess (-2.0-2.0) O2 Saturation (94-100) g/dF ABG pH (7.35-7.45) ABG HCO3 (22-28) ABG O2 Sat (Measured) (95-100) % Hans Test A-a Gradient a/A Ratio Hemoglobin Carboxyhemoglobin (0.0-6.9) % THgb Methemoglobin (1.4-1.5) % Potassium (3.5-5.1) Temperature C POC O2 Flow Rate % Sodium (135-145) mmol/L Chloride (98-107) mmol/L Carbon Dioxide (22-30) mmol/L Anion Gap (5-15) MEQ/L BUN (7-17) mg/dL Creatinine (0.52-1.04) mg/dL Estimated GFR ML/MIN Glucose (74-106) mg/dL Calcium (8.4-10.2) mg/dL Iron 25 L (37-170) ug/dL TIBC 180 L (265-462) ug/dL Iron Saturation 14 L (20-39) % Ferritin 35.8 (11.1-264) ng/mL Total Bilirubin (0.2-1.3) mg/dL AST (14-36) U/L ALT (0-35) U/L Alkaline Phosphatase (38-126) U/L Serum Total Protein (6.3-8.2) g/dL Albumin (3.5-5.0) g/dL Vitamin B12 342 (239-931) pg/mL Folic Acid 3.66 (2.76 - >20) ng/mL Radiology Exams: Radiology Procedures Category Date Time Status ABDOMEN AND PELVIS W CONTRAST [CT] Stat Exams 05/16/25 19:03 Completed CHEST 1 VIEW (PORTABLE) Stat Exams 05/17/25 07:58 Completed CHEST 1 VIEW (PORTABLE) Stat Exams 05/18/25 07:00 Completed CHEST W/WO CONTRAST [CT] Stat Exams 05/18/25 09:35 Ordered MODIFIED BARIUM SWALLOW (RAD) [MODIFIED BARIUM SWALLOW Exams 05/19/25 08:00 Ordered EXAM] Routine MRI ABD W/O CONTRAST [MRI] Routine Exams 05/19/25 10:14 Ordered Medications: Medications Generic Name Dose Route Start Last Admin Trade Name Freq PRN Reason Stop Dose Admin Acetaminophen 650 mg 05/17/25 00:48 05/18/25 08:30 Acetaminophen 325 Mg Tablet PO 06/16/25 00:47 650 mg Q4H PRN PRN Administration PAIN AND/OR FEVER Albuterol/Ipratropium 3 ml 05/17/25 01:00 05/18/25 12:14 Ipratropium/Albuterol Sulfate 3 Ml Ampul.Neb IH 06/16/25 00:59 3 ml Q6HRT REBECCA Administration Methylprednisolone Sodium 0 mg 05/18/25 08:30 05/18/25 08:31 Succinate 40 mg/ Sterile Water IV 06/17/25 08:29 40 mg 1 ml Q8HT REBECCA Administration Device 1 05/18/25 13:30 Therapuetic Drug Level Monitor Each IJ 05/18/25 13:31 1XONLY ONE Docusate Sodium 100 mg 05/18/25 22:00 Docusate Sodium 100 Mg Capsule PO 06/17/25 21:59 BID REBECCA Ferrous Sulfate 325 mg 05/19/25 10:00 Ferrous Sulfate 325 Mg Tablet PO 06/18/25 09:59 DAILY REBECCA Guaifenesin 600 mg 05/18/25 22:00 Guaifenesin 600 Mg Tablet Er PO 06/17/25 21:59 BID REBECCA Meropenem 1 gm/ Sodium 100 mls @ 200 mls/hr 05/17/25 14:00 05/18/25 06:37 Chloride IV 05/20/25 13:59 200 mls/hr Q8HT REBECCA Administration Vancomycin HCl 500 mg/ Sodium 100 mls @ 100 mls/hr 05/17/25 14:00 05/18/25 07:38 Chloride IV 06/16/25 13:59 100 mls/hr Q8HT REBECCA Administration Lactobacillus Acidophilus 1 tab 05/17/25 10:00 05/18/25 09:00 Lactobacillus Acidophilus 1 Tab Tablet PO 06/16/25 09:59 1 tab DAILY REBECCA Administration Nicotine 21 mg 05/18/25 11:00 05/18/25 12:12 Nicotine 21 Mg/Patch Patch TOP 06/17/25 10:59 21 mg DAILY REBECCA Administration Ondansetron HCl 4 mg 05/17/25 00:49 Ondansetron Hcl 4 Mg/2 Ml Vial IV 06/16/25 00:48 Q6H PRN PRN NAUSEA/VOMITING Pantoprazole Sodium 20 mg 05/19/25 10:00 Pantoprazole 20 Mg Tab PO 06/18/25 09:59 DAILY REBECCA Pregabalin 150 mg 05/17/25 10:00 05/18/25 09:00 Pregabalin 150 Mg Capsule PO 06/16/25 09:59 150 mg TID REBECCA Administration Tizanidine HCl 4 mg 05/17/25 10:00 05/18/25 09:00 Tizanidine Hcl 4 Mg Tablet PO 06/16/25 09:59 4 mg DAILY REBECCA Administration Discontinued Medications Generic Name Dose Route Start Last Admin Trade Name Freq PRN Reason Stop Dose Admin Acetaminophen 650 mg 05/16/25 22:17 05/16/25 23:03 Acetaminophen 325 Mg Tablet PO 05/16/25 22:18 650 mg STAT STA Administration Acetaminophen Confirm 05/16/25 23:02 Acetaminophen 325 Mg Tablet Administered 05/16/25 23:03 Dose 650 mg .ROUTE .STK-MED ONE Albuterol/Ipratropium Confirm 05/16/25 23:22 Ipratropium/Albuterol Sulfate 3 Ml Ampul.Neb Administered 05/16/25 23:23 Dose 3 ml IH .STK-MED ONE Albuterol/Ipratropium 3 ml 05/16/25 23:24 05/16/25 23:25 Ipratropium/Albuterol Sulfate 3 Ml Ampul.Neb IH 05/16/25 23:25 3 ml STAT ONE Administration Enoxaparin Sodium 40 mg 05/17/25 10:00 05/18/25 09:00 Enoxaparin Sodium 40 Mg/0.4 Ml Syringe SQ 06/16/25 09:59 40 mg DAILY REBECCA Administration Furosemide 20 mg 05/17/25 11:23 05/17/25 17:35 Furosemide 20 Mg/Vial IV 05/17/25 11:24 Not Given STAT ONE Sodium Chloride 1,000 mls @ 999 mls/hr 05/16/25 19:03 05/16/25 20:35 Sodium Chloride 0.9% 1000 Ml IV 05/16/25 20:03 Infused .Q1H1M STA Infusion Vancomycin HCl 1 gm in 200 mls @ 125 mls/hr 05/16/25 19:04 05/16/25 20:41 Vancomycin 1 Gram/200 Ml Bag IV 05/16/25 20:39 125 mls/hr STAT ONE 125 mls/hr Administration Meropenem 1 gm/ Sodium 100 mls @ 200 mls/hr 05/16/25 19:04 05/16/25 20:11 Chloride IV 05/16/25 19:33 0 ml/hr STAT ONE 0 mls/hr Infusion Sodium Chloride Confirm 05/16/25 19:30 Sodium Chloride 0.9% Administered 05/16/25 19:31 Dose 100 mls @ ud .ROUTE .STK-MED ONE Sodium Chloride Confirm 05/16/25 19:30 Sodium Chloride 0.9% 1000 Ml Administered 05/16/25 19:31 Dose 1,000 mls @ ud .ROUTE .STK-MED ONE Vancomycin HCl Confirm 05/16/25 20:39 Vancomycin 1 Gram/200 Ml Bag Administered 05/16/25 20:40 Dose 1 gm in 200 mls @ ud IV .STK-MED ONE Meropenem 1 gm/ Sodium 100 mls @ 200 mls/hr 05/17/25 06:00 05/17/25 06:24 Chloride IV 05/20/25 05:59 200 mls/hr Q8HT REBECCA Administration Vancomycin HCl 1 gm in 200 mls @ 125 mls/hr 05/17/25 01:00 05/17/25 01:53 Vancomycin 1 Gram/200 Ml Bag IV 06/16/25 00:59 125 mls/hr Q24H REBECCA Administration Sodium Chloride Confirm 05/17/25 06:14 Sodium Chloride 0.9% Administered 05/17/25 06:15 Dose 100 mls @ ud .ROUTE .STK-MED ONE Meropenem Confirm 05/16/25 19:29 Meropenem 1 Gm Vial Administered 05/16/25 19:30 Dose 1 gm IV .STK-MED ONE Meropenem Confirm 05/17/25 06:12 Meropenem 1 Gm Vial Administered 05/17/25 06:13 Dose 1 gm IV .STK-MED ONE <SOHEILA SHERMAN - Last Filed: 05/18/25 13:08> Assessment/Plan (1) Pneumonia Current Visit: Yes Status: Acute Assessment & Plan: - CXR 05/17: 1. A right-sided central catheter is seen ending within the SVC. 2. Hazy opacification of the right lower lung zone, suggesting pulmonary infiltrates or atelectasis. Correlate clinically. 3. Blunting of the right costophrenic angle, likely due to a mild effusion. - Increased O2 demand overnight now on High flow O2 at 31%- 95% O2 - Repeat CXR today: 1. Hazy opacification of both lower lung zones, Not seen in the current study. 2. Blunting of both costophrenic angles, Stable, likely due to a mild effusion/thickening. 3. A right-sided port catheter is seen ending within the SVC. unchanged. - IV antibiotics, steroids, Duonebs - Mucinex as pt is unable to cough up sputum - CTA chest pending- Consider thoracentestis in AM - CBC, CMP reviewed - BCX1 negative, the other was cancelled. - IS Q1 hr Code(s): J18.9 - PNEUMONIA, UNSPECIFIED ORGANISM (2) Pleural effusion Current Visit: Yes Status: Acute Assessment & Plan: - As seen on CXR's - CTA pending - Consider throracentesis in AM Code(s): J90 - PLEURAL EFFUSION, NOT ELSEWHERE CLASSIFIED (3) Weakness Current Visit: Yes Status: Acute Assessment & Plan: - Worsening 2:2 MS - PT/OT eval - Need for placement Code(s): R53.1 - WEAKNESS (4) Abdominal pain Current Visit: Yes Status: Acute Assessment & Plan: - CT abd/Pelvis: Impression: 1. Incompletely visualized right middle lobe atelectasis. Also mild right lower lobe interstitial alveolar opacities. Rule out pneumonia/pneumonitis. 2. Mild diffuse colonic fecal stasis. 3. Mild biliary tree prominence. MRCP/ERCP may yield further information if there is clinical concern. 4. Chronic findings including arteriosclerotic disease and chronic bony findings. - MRCP in AM - Colace for fecal stasis - See plan above for pneumonia Code(s): R10.9 - UNSPECIFIED ABDOMINAL PAIN (5) Anemia Current Visit: Yes Status: Acute Qualifiers: Anemia type: iron deficiency Iron deficiency anemia type: unspecified iron deficiency Qualified Code(s): D50.9 - Iron deficiency anemia, unspecified Assessment & Plan: - Iron panel reviewed + iron def. anemia - Occult stool pending - Hgb stable at 8.9- dropped from admission at 11.7 - Ferrous sulfate started daily PO- continue OP - May be 2:2 diet Code(s): D64.9 - ANEMIA, UNSPECIFIED (6) Constipation Current Visit: Yes Status: Acute Assessment & Plan: - Colace BID - CT abd pelvis reviewed and shows fecal stasis Code(s): K59.00 - CONSTIPATION, UNSPECIFIED (7) Underweight (BMI < 18.5) Current Visit: Yes Status: Acute Assessment & Plan: - Ensure high protein with meals - Nutrition consult - MS Hx - Lives alone and unable to care for self Code(s): R63.6 - UNDERWEIGHT; Z68.1 - BODY MASS INDEX [BMI] 19.9 OR LESS, ADULT (8) Aspiration into airway Current Visit: Yes Status: Acute Assessment & Plan: - As witnessed by staff with eating and drinking- coughing - Increased SOB today - BLL pneumonia - Modified Barium swallow tomorrow - Diet changed to soft with honey thick liquids until eval by ST Code(s): T17.908A - UNSP FB IN RESP TRACT, PART UNSP CAUSING OTH INJURY, INIT (9) Sacral decubitus ulcer Current Visit: Yes Status: Chronic Qualifiers: Pressure injury stage: unstageable Qualified Code(s): L89.150 - Pressure ulcer of sacral region, unstageable Assessment & Plan: - Pics in chart - PT eval for wound care - Will need OP f/u with wound care center - IV antibiotics - Prostat 64 Code(s): L89.159 - PRESSURE ULCER OF SACRAL REGION, UNSPECIFIED STAGE (10) Multiple sclerosis Current Visit: Yes Status: Chronic Assessment & Plan: - Chronic - Lives alone - Needs help often and 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 - PT/OT Code(s): G35.D - MULTIPLE SCLEROSIS, UNSPECIFIED (11) Smoker Current Visit: Yes Status: Chronic Assessment & Plan: - Advised cessation - Nicotine patch PRN- take off prior to MRCP tomorrow Code(s): F17.200 - NICOTINE DEPENDENCE, UNSPECIFIED, UNCOMPLICATED (12) Diarrhea Current Visit: Yes Status: Resolved Assessment & Plan: - Resolved for now - C-diff if needed as she has been on multiple antibiotics recently for pneumonia Code(s): R19.7 - DIARRHEA, UNSPECIFIED (13) Tetrahydrocannabinol (THC) dependence Current Visit: Yes Status: Chronic Assessment & Plan: - Advised cessation Code(s): F12.20 - CANNABIS DEPENDENCE, UNCOMPLICATED (14) IBS (irritable bowel syndrome) Current Visit: Yes Status: Chronic Assessment & Plan: - Chronic- goes between diarrhea and constipation - treat sxs VTE: Hold Lovenox in case needs procedure tomorrow/ SCD's PPI: Protonix Next of Kin: none D/C plan: 2-3 days Code status: SCO/DNR Plan of care time /critcal care> 50 minutes <LEVI SCHUMACHER - Last Filed: 05/18/25 10:13>
[2025-05-18] MEDS: Nicoderm CQ 21 MG TOP SCH (12:12)
--- NOTE | 2025-05-18 16:54 | XRAY ---
CLINICAL HISTORY: increased O2 demand/SOB COMPARISON: 05/18/2025 chest X-ray reviewed. TECHNIQUE: Contiguous axial CT images of the chest were acquired with and without administration of intravenous contrast. Coronal and sagittal reconstructions were obtained. One of the following dose-reduction techniques was utilized for this exam: Automated exposure control, adjustment of the mA and/or kV according to patient size, and use of iterative reconstruction. FINDINGS: Lungs: Moderate bilateral pleural effusion with total compression collapse of both lower lung lobes. Bilateral emphysematous lung changes with paraseptal emphysematous bullae (more noted on the right side) and right upper lobe cysts, largest seen in the right apex, measuring about 3.7 x 3 cm. Mild air-fluid level is seen within the right pleural effusion, likely a small hydropneumothorax. Mediastinum: No mediastinal mass or abnormal lymphadenopathy. Normal appearance of the thymus. Calcified right paratracheal lymph node. Hilar Structures: Normal size and configuration; no enlargement. Heart and Great Vessels: Normal heart size and configuration. No pericardial effusion. Normal caliber and course of the thoracic aorta and other great vessels. Aortic atheromatous calcifications are noted. Pulmonary Arteries: No evidence of pulmonary embolism. Normal size and course of the pulmonary arteries. Bones: No fractures or lytic/sclerotic lesions. No evidence of rib fractures. Chest Wall: No masses or soft tissue abnormalities. Right-sided Port-a-Cath with its tip at the SVC-atrial junction. Upper Abdomen: No abnormalities noted in the visualized upper abdominal organs. Thyroid: Normal size and morphology. No nodules or masses. Esophagus: Normal course and caliber. No gross masses or dilatation. IMPRESSION: 1. Moderate bilateral pleural effusion with total compression collapse of the lower lobes. 2. Focal air-fluid level within the right pleural effusion, representing a small hydropneumothorax. 3. Bilateral emphysematous lung changes and right upper lobe cysts. Electronically Signed by: Pancho Holland MD. (05/18/2025 16:52:46 EST)
[2025-05-18] MEDS: TROUGH DRUG LEVELS IJ ONE (18:59)
[2025-05-18 20:12] LABS: IFOB TEST RESULTS NEGATIVE (NEGATIVE)
[2025-05-18 20:43] LABS: 027 TOX PROD PRESUMPTIVE NEGATIVE (NEGATIVE); TOXIGENIC C. DIFF ORG NEGATIVE (NEGATIVE)
[2025-05-18] MEDS: Docusate Sodium 100 MG PO SCH (21:14)
[2025-05-18] MEDS: Mucinex 600MG ER Tabs PO SCH (21:15)
--- NOTE | 2025-05-19 05:45 | PCM.NOTE ---
Date and Time: 05/19/25 0539 Subjective Assessment: Ms. Soria is a 64 year old female with a pmhx of advanced multiple sclerosis complicated by functional decline, chronic sacral pressure ulcer, irritable bowel syndrome, hypertension, cataracts, chronic tobacco and THC use, and underweight BMI who presented to the emergency department on 05/17/25 with worsening shortness of breath and diarrhea after a recent hospitalization for small bowel obstruction. CT abdomen/pelvis showed right middle and lower lobe pneumonia/pneumonitis, fecal stasis, and mild biliary dilation. She rapidly worsened overnight 05/17/25 with increasing hypoxia, now on high-flow oxygen at 31% with saturations 95%, and CXR progressed from a right lower lobe infiltrate with small effusion to bilateral lower lobe opacities with stable pleural effusions. She is being treated with IV meropenem and vancomycin, IV steroids, nebulizers, and mucolytics. CTA chest is pending to rule out PE and further evaluate the effusions. Staff observed choking with meals, raising strong concern for aspiration; she is now on soft foods with honey-thick liquids and a modified barium swallow is scheduled. Labs show improving leukocytosis (WBC 12.9) but worsening iron-deficiency anemia (Hgb 8.9 from 11.7), now on oral iron with occult stool pending. Diarrhea has resolved and constipation is now evident on imaging, treated with Colace. MRCP is scheduled for biliary dilation. She has profound weakness from MS with frequent staff dependence, active sacral ulcer on wound care, poor nutrition on supplements, and will require skilled placement at discharge. Objective Exam Wound Assessment: Skin/Wound Assessment Wound/Incision Assessment Start: 05/17/25 01:14 Text: Status: Active Freq: Q6H Protocol: Document 05/19/25 02:00 AK (Rec: 05/19/25 02:19 AK [id number]) Wound/Incision Assessment Medial Buttock Wound Assessment Shift Assessment Wound Type Pressure Ulcer Wound Stage Unstageable Dressing Status Dry & Intact Length (cm) (cm) 8 Width (cm) (cm) 6 Primary Dressing mepilex border Wound Photo Photo Taken No Objective Data Vital Signs: Vital Signs - 24 hr Temp Pulse Resp BP Pulse Ox 05/19/25 05:06 92 L 05/19/25 04:00 99.1 F 114 H 22 111/55 92 L 05/19/25 03:20 94 L 05/19/25 00:54 101 H 22 95 05/18/25 23:46 98.8 F 111 H 27 H 102/51 93 L 05/18/25 23:17 93 L 05/18/25 19:52 97.9 F 121 H 18 100/58 95 05/18/25 19:07 114 H 22 98 05/18/25 15:46 98.1 F 115 H 16 108/54 92 L 05/18/25 12:27 96 H 18 98 05/18/25 11:44 93 H 18 93 L 05/18/25 11:24 97.9 F 91 H 18 105/52 95 05/18/25 06:41 111 H 18 95 05/18/25 06:35 97.8 F 81 18 95/53 99 Pain Assessment - Last Documented Pain Intensity 0 Pain Scale Used 0-10 Pain Scale Intake and Output: Intake & Output 05/16/25 05/17/25 05/18/25 05/19/25 11:59 11:59 11:59 11:59 Intake Total 240 1010 640 Output Total 150 675 850 Balance 90 335 -210 Weight 39.2 kg Lab Results: Lab Results-Last 24 Hours 05/16/25 05/17/25 05/18/25 Range/Units 19:55 19:55 05:33 WBC 12.9 H (3.98-10.04) x10^3/uL RBC 2.72 L (3.93-5.22) x10^6/uL Hgb 8.5 L (11.2-15.7) g/dL Hct 26.5 L (34.1-44.9) % MCV 97.4 H (79.4-94.8) fL MCH 31.3 (25.6-32.2) pg MCHC 32.1 L (32.2-35.5) g/dL RDW 14.3 (11.7-14.4) % Plt Count 175 L (182-369) x10^3/uL MPV 11.1 (9.4-12.3) fL Sodium (135-145) mmol/L Potassium (3.5-5.1) mmol/L Chloride (98-107) mmol/L Carbon Dioxide (22-30) mmol/L Anion Gap (5-15) MEQ/L BUN (7-17) mg/dL Creatinine (0.52-1.04) mg/dL Estimated GFR ML/MIN Glucose (74-106) mg/dL Calcium (8.4-10.2) mg/dL Iron (37-170) ug/dL TIBC (265-462) ug/dL Iron Saturation (20-39) % Ferritin (11.1-264) ng/mL Total Bilirubin (0.2-1.3) mg/dL AST (14-36) U/L ALT (0-35) U/L Alkaline Phosphatase (38-126) U/L Serum Total Protein (6.3-8.2) g/dL Albumin (3.5-5.0) g/dL Vitamin B12 (239-931) pg/mL Folic Acid (2.76 - >20) ng/mL Stl Occult Blood (IFOB) NEGATIVE (NEGATIVE) Vancomycin Trough (10-20) ug/mL C. difficile Screen NEGATIVE (NEGATIVE) C.difficile 027-NAP1-B1 PRESUMPTIVE NEGATIVE (NEGATIVE) 05/18/25 05/18/25 05/18/25 Range/Units 05:33 05:33 05:33 WBC (3.98-10.04) x10^3/uL RBC (3.93-5.22) x10^6/uL Hgb (11.2-15.7) g/dL Hct (34.1-44.9) % MCV (79.4-94.8) fL MCH (25.6-32.2) pg MCHC (32.2-35.5) g/dL RDW (11.7-14.4) % Plt Count (182-369) x10^3/uL MPV (9.4-12.3) fL Sodium 137 (135-145) mmol/L Potassium 3.6 (3.5-5.1) mmol/L Chloride 106 (98-107) mmol/L Carbon Dioxide 29 (22-30) mmol/L Anion Gap 5.6 (5-15) MEQ/L BUN 10 (7-17) mg/dL Creatinine 0.29 L (0.52-1.04) mg/dL Estimated GFR 119.4 ML/MIN Glucose 104 (74-106) mg/dL Calcium 8.0 L (8.4-10.2) mg/dL Iron 25 L (37-170) ug/dL TIBC 180 L (265-462) ug/dL Iron Saturation 14 L (20-39) % Ferritin 35.8 (11.1-264) ng/mL Total Bilirubin 0.30 (0.2-1.3) mg/dL AST 16 (14-36) U/L ALT 10 (0-35) U/L Alkaline Phosphatase 49 (38-126) U/L Serum Total Protein 5.1 L (6.3-8.2) g/dL Albumin 2.4 L (3.5-5.0) g/dL Vitamin B12 342 (239-931) pg/mL Folic Acid 3.66 (2.76 - >20) ng/mL Stl Occult Blood (IFOB) (NEGATIVE) Vancomycin Trough (10-20) ug/mL C. difficile Screen (NEGATIVE) C.difficile 027-NAP1-B1 (NEGATIVE) 05/18/25 Range/Units 13:38 WBC (3.98-10.04) x10^3/uL RBC (3.93-5.22) x10^6/uL Hgb (11.2-15.7) g/dL Hct (34.1-44.9) % MCV (79.4-94.8) fL MCH (25.6-32.2) pg MCHC (32.2-35.5) g/dL RDW (11.7-14.4) % Plt Count (182-369) x10^3/uL MPV (9.4-12.3) fL Sodium (135-145) mmol/L Potassium (3.5-5.1) mmol/L Chloride (98-107) mmol/L Carbon Dioxide (22-30) mmol/L Anion Gap (5-15) MEQ/L BUN (7-17) mg/dL Creatinine (0.52-1.04) mg/dL Estimated GFR ML/MIN Glucose (74-106) mg/dL Calcium (8.4-10.2) mg/dL Iron (37-170) ug/dL TIBC (265-462) ug/dL Iron Saturation (20-39) % Ferritin (11.1-264) ng/mL Total Bilirubin (0.2-1.3) mg/dL AST (14-36) U/L ALT (0-35) U/L Alkaline Phosphatase (38-126) U/L Serum Total Protein (6.3-8.2) g/dL Albumin (3.5-5.0) g/dL Vitamin B12 (239-931) pg/mL Folic Acid (2.76 - >20) ng/mL Stl Occult Blood (IFOB) (NEGATIVE) Vancomycin Trough 10.12 (10-20) ug/mL C. difficile Screen (NEGATIVE) C.difficile 027-NAP1-B1 (NEGATIVE) Radiology Exams: Radiology Procedures Category Date Time Status CHEST 1 VIEW (PORTABLE) Stat Exams 05/17/25 07:58 Completed CHEST 1 VIEW (PORTABLE) Stat Exams 05/18/25 07:00 Completed CHEST W/WO CONTRAST [CT] Stat Exams 05/18/25 09:35 Completed MODIFIED BARIUM SWALLOW (RAD) [MODIFIED BARIUM SWALLOW Exams 05/19/25 08:00 Ordered EXAM] Routine MRI ABD W/O CONTRAST [MRI] Routine Exams 05/19/25 10:14 Ordered Medications: Medications Generic Name Dose Route Start Last Admin Trade Name Freq PRN Reason Stop Dose Admin Acetaminophen 650 mg 05/17/25 00:48 05/19/25 04:19 Acetaminophen 325 Mg Tablet PO 06/16/25 00:47 650 mg Q4H PRN PRN Administration PAIN AND/OR FEVER Albuterol/Ipratropium 3 ml 05/17/25 01:00 05/19/25 00:54 Ipratropium/Albuterol Sulfate 3 Ml Ampul.Neb IH 06/16/25 00:59 3 ml Q6HRT JYOTSNA Administration Methylprednisolone Sodium 0 mg 05/18/25 08:30 05/18/25 21:15 Succinate 40 mg/ Sterile Water IV 06/17/25 08:29 40 mg 1 ml Q8HT JYOTSNA Administration Docusate Sodium 100 mg 05/18/25 22:00 05/18/25 21:14 Docusate Sodium 100 Mg Capsule PO 06/17/25 21:59 100 mg BID JYOTSNA Administration Ferrous Sulfate 325 mg 05/19/25 10:00 Ferrous Sulfate 325 Mg Tablet PO 06/18/25 09:59 DAILY JYOTSNA Guaifenesin 600 mg 05/18/25 22:00 05/18/25 21:15 Guaifenesin 600 Mg Tablet Er PO 06/17/25 21:59 600 mg BID JYOTSNA Administration Heparin Sodium (Beef Lung) 500 units 05/19/25 04:31 05/19/25 04:10 Heparin Lock Flush Pf 500 Units/5 Ml Syringe PORT FLUSH 06/18/25 04:30 500 units PRN PRN Administration IV PORT FLUSH Meropenem 1 gm/ Sodium 100 mls @ 200 mls/hr 05/17/25 14:00 05/18/25 22:07 Chloride IV 05/20/25 13:59 200 mls/hr Q8HT JYOTSNA Administration Vancomycin HCl 500 mg/ Sodium 100 mls @ 100 mls/hr 05/17/25 14:00 05/18/25 21:15 Chloride IV 06/16/25 13:59 100 mls/hr Q8HT JYOTSNA Administration Lactobacillus Acidophilus 1 tab 05/17/25 10:00 05/18/25 09:00 Lactobacillus Acidophilus 1 Tab Tablet PO 06/16/25 09:59 1 tab DAILY JYOTSNA Administration Nicotine 21 mg 05/18/25 11:00 05/18/25 12:12 Nicotine 21 Mg/Patch Patch TOP 06/17/25 10:59 21 mg DAILY JYOTSNA Administration Ondansetron HCl 4 mg 05/17/25 00:49 Ondansetron Hcl 4 Mg/2 Ml Vial IV 06/16/25 00:48 Q6H PRN PRN NAUSEA/VOMITING Pantoprazole Sodium 20 mg 05/19/25 10:00 Pantoprazole 20 Mg Tab PO 06/18/25 09:59 DAILY JYOTSNA Pregabalin 150 mg 05/17/25 10:00 05/18/25 21:14 Pregabalin 150 Mg Capsule PO 06/16/25 09:59 150 mg TID JYOTSNA Administration Tizanidine HCl 4 mg 05/17/25 10:00 05/18/25 09:00 Tizanidine Hcl 4 Mg Tablet PO 06/16/25 09:59 4 mg DAILY JYOTSNA Administration Discontinued Medications Generic Name Dose Route Start Last Admin Trade Name Freq PRN Reason Stop Dose Admin Acetaminophen 650 mg 05/16/25 22:17 05/16/25 23:03 Acetaminophen 325 Mg Tablet PO 05/16/25 22:18 650 mg STAT STA Administration Acetaminophen Confirm 05/16/25 23:02 Acetaminophen 325 Mg Tablet Administered 05/16/25 23:03 Dose 650 mg .ROUTE .STK-MED ONE Albuterol/Ipratropium Confirm 05/16/25 23:22 Ipratropium/Albuterol Sulfate 3 Ml Ampul.Neb Administered 05/16/25 23:23 Dose 3 ml IH .STK-MED ONE Albuterol/Ipratropium 3 ml 05/16/25 23:24 05/16/25 23:25 Ipratropium/Albuterol Sulfate 3 Ml Ampul.Neb IH 05/16/25 23:25 3 ml STAT ONE Administration Device 1 05/18/25 13:30 05/18/25 18:59 Therapuetic Drug Level Monitor Each IJ 05/18/25 13:31 Not Given 1XONLY ONE Enoxaparin Sodium 40 mg 05/17/25 10:00 05/18/25 09:00 Enoxaparin Sodium 40 Mg/0.4 Ml Syringe SQ 06/16/25 09:59 40 mg DAILY JYOTSNA Administration Furosemide 20 mg 05/17/25 11:23 05/17/25 17:35 Furosemide 20 Mg/Vial IV 05/17/25 11:24 Not Given STAT ONE Heparin Sodium (Beef Lung) Confirm 05/19/25 04:18 Heparin Lock Flush Pf 500 Units/5 Ml Syringe Administered 05/19/25 04:19 Dose 500 units .ROUTE .STK-MED ONE Sodium Chloride 1,000 mls @ 999 mls/hr 05/16/25 19:03 05/16/25 20:35 Sodium Chloride 0.9% 1000 Ml IV 05/16/25 20:03 Infused .Q1H1M STA Infusion Vancomycin HCl 1 gm in 200 mls @ 125 mls/hr 05/16/25 19:04 05/16/25 20:41 Vancomycin 1 Gram/200 Ml Bag IV 05/16/25 20:39 125 mls/hr STAT ONE 125 mls/hr Administration Meropenem 1 gm/ Sodium 100 mls @ 200 mls/hr 05/16/25 19:04 05/16/25 20:11 Chloride IV 05/16/25 19:33 0 ml/hr STAT ONE 0 mls/hr Infusion Sodium Chloride Confirm 05/16/25 19:30 Sodium Chloride 0.9% Administered 05/16/25 19:31 Dose 100 mls @ ud .ROUTE .STK-MED ONE Sodium Chloride Confirm 05/16/25 19:30 Sodium Chloride 0.9% 1000 Ml Administered 05/16/25 19:31 Dose 1,000 mls @ ud .ROUTE .STK-MED ONE Vancomycin HCl Confirm 05/16/25 20:39 Vancomycin 1 Gram/200 Ml Bag Administered 05/16/25 20:40 Dose 1 gm in 200 mls @ ud IV .STK-MED ONE Meropenem 1 gm/ Sodium 100 mls @ 200 mls/hr 05/17/25 06:00 05/17/25 06:24 Chloride IV 05/20/25 05:59 200 mls/hr Q8HT JYOTSNA Administration Vancomycin HCl 1 gm in 200 mls @ 125 mls/hr 05/17/25 01:00 05/17/25 01:53 Vancomycin 1 Gram/200 Ml Bag IV 06/16/25 00:59 125 mls/hr Q24H JYOTSNA Administration Sodium Chloride Confirm 05/17/25 06:14 Sodium Chloride 0.9% Administered 05/17/25 06:15 Dose 100 mls @ ud .ROUTE .STK-MED ONE Meropenem Confirm 05/16/25 19:29 Meropenem 1 Gm Vial Administered 05/16/25 19:30 Dose 1 gm IV .STK-MED ONE Meropenem Confirm 05/17/25 06:12 Meropenem 1 Gm Vial Administered 05/17/25 06:13 Dose 1 gm IV .STK-MED ONE Assessment/Plan (1) Pneumonia Current Visit: Yes Status: Acute Assessment & Plan: -CXR with RLL infiltrate and effusion - progressed to bilateral lower lobe opacities; CT with RML atelectasis + RLL pneumonitis. -Escalated from 4 L NC to high-flow 31% FiO2 -BCx x1 negative; second canceled. -WBC reviewed -Meropenem IV /Vanc continue -Continue solumedrol 40mg q8h/DuoNeb jyotsna -Protonix -Mucinex -IS -CTA chest demonstrates moderate bilateral pleural effusions with near-complete compressive atelectasis of the lower lobes, a small right-sided hydropneumothorax, and underlying emphysematous lung disease with right upper lobe cystic changes. Findings are concerning for clinically significant pleural disease with impaired ventilation and risk for respiratory decompensation. -Pulm consulted -Pleural effusions: thoracentesis. Code(s): J18.9 - PNEUMONIA, UNSPECIFIED ORGANISM (2) Aspiration into airway Current Visit: Yes Status: Acute Assessment & Plan: -Witnessed choking and coughing with meals. -Soft solids + honey-thick liquids. -Speech therapy: Modified barium swallow scheduled. -Likely contributor to bilateral pneumonia. Code(s): T17.908A - UNSP FB IN RESP TRACT, PART UNSP CAUSING OTH INJURY, INIT (3) Sacral decubitus ulcer Current Visit: Yes Status: Chronic Qualifiers: Pressure injury stage: unstageable Qualified Code(s): L89.150 - Pressure ulcer of sacral region, unstageable Assessment & Plan: -Photos in chart. -PT/wound care consult -Protein supplementation (Prostat 64) -IV antibiotics continued given infection risk -Outpatient wound care center required. -Wound culture if able Code(s): L89.159 - PRESSURE ULCER OF SACRAL REGION, UNSPECIFIED STAGE (4) Abdominal pain Current Visit: Yes Status: Acute Assessment & Plan: -CT Findings:Mild diffuse colonic fecal stasis Mild biliary tree prominence -Colace BID -MRCP scheduled -No active diarrhea since admission Code(s): R10.9 - UNSPECIFIED ABDOMINAL PAIN (5) Anemia Current Visit: Yes Status: Acute Qualifiers: Anemia type: iron deficiency Iron deficiency anemia type: unspecified iron deficiency Qualified Code(s): D50.9 - Iron deficiency anemia, unspecified Assessment & Plan: -Hgb 8.5 -stable -Iron panel: Consistent with iron deficiency. -Ferrous sulfate PO daily -Occult stool negative -Likely nutritional + chronic disease contributions. Code(s): D64.9 - ANEMIA, UNSPECIFIED (6) Constipation Current Visit: Yes Status: Acute Assessment & Plan: -CT: Fecal stasis. -Colace BID -Avoid ileus given recent SBO history. Code(s): K59.00 - CONSTIPATION, UNSPECIFIED (7) Pleural effusion Current Visit: Yes Status: Acute Assessment & Plan: -Seen on serial CXRs with stable blunting of costophrenic angles. -CTA chest demonstratges moderate bilateral pleural effusion with total compression collapse of the lower lobes. Focal air-fluid level within the right pleural effusion, representing a small hydropneumothorax. Bilateral emphysematous lung changes and right upper lobe cysts. -Thoracentesis ordered -Patient may require transfer to a higher level of care for management of bilateral compressive pleural effusions with right-sided hydropneumothorax and escalating oxygen requirements on high-flow nasal cannula. Definitive pleural intervention (thoracentesis vs chest tube) and Pulmonology/Thoracic Surgery capabilities are not available at this critical access facility Code(s): J90 - PLEURAL EFFUSION, NOT ELSEWHERE CLASSIFIED (8) Underweight (BMI < 18.5) Current Visit: Yes Status: Acute Assessment & Plan: -BMI < 18.5, frail. -Ensure high-protein with meals -Nutrition consult ordered -Contributors: MS, limited intake, aspiration risk, chronic illness. Code(s): R63.6 - UNDERWEIGHT; Z68.1 - BODY MASS INDEX [BMI] 19.9 OR LESS, ADULT (9) Weakness Current Visit: Yes Status: Acute Assessment & Plan: -Progressive multiple sclerosis with acute deconditioning and infection. -PT/OT: Active evaluation. - Will require skilled placement at discharge. -High fall and aspiration risk. Code(s): R53.1 - WEAKNESS (10) IBS (irritable bowel syndrome) Current Visit: Yes Status: Chronic Assessment & Plan: - Alternating diarrhea and constipation. -Symptom-directed management (11) Multiple sclerosis Current Visit: Yes Status: Chronic Assessment & Plan: -noted, see above Code(s): G35.D - MULTIPLE SCLEROSIS, UNSPECIFIED (12) Smoker Current Visit: Yes Status: Chronic Assessment & Plan: -Cessation advised. -Nicotine patch PRN (remove prior to MRCP). Code(s): F17.200 - NICOTINE DEPENDENCE, UNSPECIFIED, UNCOMPLICATED (13) Tetrahydrocannabinol (THC) dependence Current Visit: Yes Status: Chronic Assessment & Plan: -Counseling: Advised cessation. Code(s): F12.20 - CANNABIS DEPENDENCE, UNCOMPLICATED (14) Diarrhea Current Visit: Yes Status: Resolved Assessment & Plan: -No diarrhea since admission. -C. difficile pending due to recent antibiotic exposure. VTE: Hold Lovenox / SCD's PPI: Protonix Next of Kin: none D/C plan: 2-3 days Code status: SCO/DNR Plan of care time /critcal care> 40 minutes Code(s): R19.7 - DIARRHEA, UNSPECIFIED
[2025-05-19 10:13] LABS: Hematocrit 31.3 % (34.1-44.9); Hemoglobin 10.0 g/dL (11.2-15.7); Mean Corpuscular Hemoglobin 30.9 pg (25.6-32.2); Mean Corpuscular Hgb Concent. 31.9 g/dL (32.2-35.5); Platelet Count 330 x10^3/uL (182-369); Red Blood Count 3.24 x10^6/uL (3.93-5.22); White Blood Count 10.9 x10^3/uL (3.98-10.04)
--- NOTE | 2025-05-19 10:22 | PCM.DS ---
Discharge Summary Date of Admission: 05/17/25 00:27 Date of Discharge: 05/19/25 Admitting Physician: CLARA MAST MD Consults: Consults on Case 05/18/25 10:34 Nutritional Consult ROUTINE 05/19/25 05:49 Consult Pulmonology ROUTINE Primary Care Provider: SHANELL TVAERAS Allergies Allergies amoxicillin Adverse Reaction (Intermediate, Verified 05/16/25 18:55) Diarrhea sulfamethoxazole [From Bactrim] Adverse Reaction (Intermediate, Verified 05/16/25 18:54) Vomiting trimethoprim [From Bactrim] Adverse Reaction (Intermediate, Verified 05/16/25 18:54) Vomiting Hospital Summary - Hospital Course Hospital Course: Ms. Soria is a 64-year-old female with advanced multiple sclerosis complicated by severe functional decline, chronic unstageable sacral pressure ulcer, irritable bowel syndrome, hypertension, cataracts, chronic tobacco and THC use, and chronic underweight BMI who presented on 05/17/25 with worsening shortness of breath and diarrhea following a recent hospitalization for small bowel obstruction. Initial CT of the abdomen and pelvis demonstrated right middle and lower lobe pneumonitis, diffuse colonic fecal stasis, and mild biliary tree dilation. She experienced rapid respiratory decompensation overnight with escalating oxygen requirements, progressing to high-flow oxygen with persistent hypoxia despite aggressive pulmonary therapy. Serial chest radiographs demonstrated progression from a right-sided infiltrate with effusion to bilateral lower lobe opacities with stable pleural effusions. CTA of the chest revealed moderate bilateral pleural effusions with near-complete compressive atelectasis of both lower lobes, a focal air-fluid level consistent with a small right-sided hydropneumothorax, and underlying emphysematous lung disease with right upper lobe cystic changes, collectively indicating high risk for further respiratory failure. Pulmonology was unavailabe for consult, and thoracentesis was considered; however, given escalating oxygen requirements and the presence of a hydropneumothorax with compressive physiology, definitive pleural intervention exceeds the procedural capabilities of this critical access facility. Blood cultures have remained negative. Leukocytosis has improved; however, anemia has worsened with iron deficiency confirmed on iron studies. She has demonstrated witnessed choking with meals raising high concern for aspiration, now requiring modified diet with thickened liquids and pending swallow evaluation. Diarrhea has resolved with constipation now evident on imaging. Given the degree of bilateral pleural disease with compressive atelectasis, hydropneumothorax, ongoing high-flow oxygen requirement at 60% 25L, high aspiration risk, and frailty in the setting of advanced multiple sclerosis, she requires transfer for higher-level pulmonary and procedural management. I spent 45 minutes [id number] with the patient on the day of discharge performing discharge exam, discussing hospital stay and discharge instructions with patient and caregivers, preparation of discharge records, prescriptions & referral forms and addressing any questions/concerns the patient had as documented above. - Vitals & Intake/Output Vital Signs: Vital Signs Temperature 98.3 F 05/19/25 08:00 Pulse Rate 94 H 05/19/25 08:00 Respiratory Rate 20 05/19/25 08:00 Blood Pressure 91/50 05/19/25 08:00 O2 Sat by Pulse Oximetry 86 L 05/19/25 09:03 Intake & Output: Intake & Output 05/16/25 05/17/25 05/18/25 05/19/25 11:59 11:59 11:59 11:59 Intake Total 240 1010 760 Output Total 599 562 9881 Balance 90 335 -740 Weight 39.2 kg - Lab Result Diagrams: 05/18/25 05:33 05/18/25 05:33 Lab Results-Last 24 Hrs: Lab Results-Last 24 Hours 05/16/25 05/17/25 05/18/25 Range/Units 19:55 19:55 13:38 Stl Occult Blood (IFOB) NEGATIVE (NEGATIVE) Vancomycin Trough 10.12 (10-20) ug/mL C. difficile Screen NEGATIVE (NEGATIVE) C.difficile [id number] PRESUMPTIVE NEGATIVE (NEGATIVE) Micro Results-Entire Visit: Microbiology 05/16/25 19:51 Blood Culture - Preliminary Blood - Radiology Exams Ordered Rad Exams-Entire Visit: Radiology Procedures Category Date Time Status CHEST 1 VIEW (PORTABLE) Stat Exams 05/18/25 07:00 Completed CHEST W/WO CONTRAST [CT] Stat Exams 05/18/25 09:35 Completed MODIFIED BARIUM SWALLOW (RAD) [MODIFIED BARIUM SWALLOW Exams 05/19/25 08:00 Stop Req EXAM] Routine - Procedures and Test Procedures and Tests throughout Hospitalization: Therapy Orders & Screens 05/16/25 23:28 Respiratory Therapy Assessment DAILY Comment: 05/17/25 00:34 Oxygen Nasal Cannula 2 lpm Comment: Respiratory Therapy Consult ONCE Comment: Reason For Exam: 05/17/25 07:59 PT Eval & Treat (MD Order) ONCE Reason for Eval:: coccyx,wound Diagnosis: RLL PNEUMONIA 05/17/25 08:36 FLUTTER [Flutter Therapy] UD Comment: Diagnosis: RLL PNEUMONIA 05/18/25 03:43 Oxygen High Flow per RT 98% Comment: HIGH FLOW 30L/ 98% Diagnosis: RLL PNEUMONIA 05/18/25 10:26 OT Eval and Treat (MD Order) ROUTINE Comment: Physician Instructions: Reason For Exam: Evaluate: Yes Treat: Yes Reason for Evaluation: for placement- weakness with MS Diagnosis: RLL PNEUMONIA 05/18/25 10:48 Incentive Spirometry UD Comment: Diagnosis: RLL PNEUMONIA 05/18/25 10:52 ST Eval & Treat (MD Order) .as ordered Comment: Physician Instructions: Reason For Exam: Evaluate: Yes Treat: Yes Reason for Eval: Aspiration Diagnosis: RLL PNEUMONIA 05/19/25 10:25 PT Eval & Treat ( Order) ONCE Reason for Eval:: weakness, placement Diagnosis: RLL PNEUMONIA Discharge Exam General Appearance: no apparent distress Neurologic Exam: alert, oriented x 3, cooperative Eye Exam: PERRL Ears, Nose, Throat Exam: normal ENT inspection Neck Exam: normal inspection Respiratory Exam: diminished breath sounds, crackles/rales Cardiovascular Exam: regular rate/rhythm, normal heart sounds Gastrointestinal/Abdomen Exam: soft, normal bowel sounds Pelvic Exam: deferred Rectal Exam: deferred Back Exam: normal inspection Extremity Exam: normal inspection Wound Assessment: Skin/Wound Assessment Wound/Incision Assessment Start: 05/17/25 01:14 Text: Status: Active Freq: Q6H Protocol: Document 05/19/25 02:00 OLGA (Rec: 05/19/25 02:19 AK [id number]) Wound/Incision Assessment Medial Buttock Wound Assessment Shift Assessment Wound Type Pressure Ulcer Wound Stage Unstageable Dressing Status Dry & Intact Length (cm) (cm) 8 Width (cm) (cm) 6 Primary Dressing mepilex border Wound Photo Photo Taken No Final Diagnosis/Problem List - Final Discharge Diagnosis/Problem (1) Pneumonia Current Visit: Yes Status: Acute Assessment & Plan: Transfer is medically necessary due to moderate bilateral pleural effusions with near-complete lower lobe compressive atelectasis, right-sided hydropneumothorax, escalating oxygen requirements on high-flow support, and high aspiration risk requiring advanced pulmonary intervention, potential chest tube placement, and thoracic surgical capability not available at this critical access facility -Progressed radiographically from unilateral lower lobe infiltrate to bilateral lower lobe disease with persistent pleural effusions and compressive atelectasis. -CTA demonstrated near-total lower lobe compression and hydropneumothorax. -Treated with meropenem and vancomycin, scheduled bronchodilators, systemic corticosteroids, mucolytics, proton pump inhibitor, and aggressive pulmonary hygiene. -Oxygen requirements escalated to high-flow support at 25L 60% -Transfer required for advanced respiratory and pleural intervention capabilities with pulmonology support Code(s): J18.9 - PNEUMONIA, UNSPECIFIED ORGANISM (2) Aspiration into airway Current Visit: Yes Status: Acute Assessment & Plan: Witnessed choking and coughing with oral intake. Diet modified to soft solids with thickened liquids. Swallow study scheduled but delayed by respiratory instability as well as no radiologist on site to perform Strong contributor to pulmonary disease burden. Requires inpatient swallow evaluation and aspiration-precaution management at higher level of care. Code(s): T17.908A - UNSP FB IN RESP TRACT, PART UNSP CAUSING OTH INJURY, INIT (3) Sacral decubitus ulcer Current Visit: Yes Status: Chronic Assessment & Plan: Actively managed by wound care with photographic documentation. High infection risk in setting of poor nutrition and immobility. Requires continued pressure offloading, antimicrobial coverage, protein supplementation, and outpatient wound care center follow-up. Wound cultures obtained Code(s): L89.159 - PRESSURE ULCER OF SACRAL REGION, UNSPECIFIED STAGE (4) Abdominal pain Current Visit: Yes Status: Acute Assessment & Plan: CT demonstrated mild biliary prominence. MRCP scheduled for further evaluation. No overt obstructive laboratory pattern at this time. Further hepatobiliary workup pending at receiving facility. Code(s): R10.9 - UNSPECIFIED ABDOMINAL PAIN (5) Anemia Current Visit: Yes Status: Acute Assessment & Plan: Hgb 8.5 -stable -Iron panel: Consistent with iron deficiency. Ferrous sulfate PO daily Occult stool negative Likely nutritional + chronic disease contributions Code(s): D64.9 - ANEMIA, UNSPECIFIED (6) Constipation Current Visit: Yes Status: Acute Assessment & Plan: CT: Fecal stasis. Colace BID Avoid ileus given recent SBO history. Code(s): K59.00 - CONSTIPATION, UNSPECIFIED (7) Pleural effusion Current Visit: Yes Status: Acute Assessment & Plan: CTA demonstrated moderate bilateral pleural effusions with near-complete compressive lower lobe atelectasis and a focal air-fluid level representing a right-sided hydropneumothorax. Thoracentesis ordered locally but procedural risk exceeds facility capability. High risk for acute respiratory deterioration. Transfer required for definitive pleural drainage and potential chest tube placement with thoracic surgical support. Code(s): J90 - PLEURAL EFFUSION, NOT ELSEWHERE CLASSIFIED (8) Underweight (BMI < 18.5) Current Visit: Yes Status: Acute Assessment & Plan: Frail body habitus with chronic low BMI. Receiving nutritional supplementation. Nutrition consult placed. Malnutrition contributes to poor wound healing, infection risk, and respiratory muscle weakness. Code(s): R63.6 - UNDERWEIGHT; Z68.1 - BODY MASS INDEX [BMI] 19.9 OR LESS, ADULT (9) Weakness Current Visit: Yes Status: Acute Assessment & Plan: Profound baseline weakness with acute deconditioning from infection. Total assistance required for mobility and activities of daily living. High fall and aspiration risk. Skilled placement anticipated following stabilization. Code(s): R53.1 - WEAKNESS (10) IBS (irritable bowel syndrome) Current Visit: Yes Status: Chronic Assessment & Plan: History of alternating diarrhea and constipation. Currently constipation-predominant during hospitalization. Managed symptomatically. (11) Multiple sclerosis Current Visit: Yes Status: Chronic Assessment & Plan: see weakness above Code(s): G35.D - MULTIPLE SCLEROSIS, UNSPECIFIED (12) Smoker Current Visit: Yes Status: Chronic Assessment & Plan: Smoking and THC use contribute to underlying emphysematous lung disease. Nicotine replacement ordered. Cessation counseling provided. Code(s): F17.200 - NICOTINE DEPENDENCE, UNSPECIFIED, UNCOMPLICATED (13) Tetrahydrocannabinol (THC) dependence Current Visit: Yes Status: Chronic Assessment & Plan: see above Code(s): F12.20 - CANNABIS DEPENDENCE, UNCOMPLICATED (14) Diarrhea Current Visit: Yes Status: Resolved Assessment & Plan: resolved Cdiff negative Code(s): R19.7 - DIARRHEA, UNSPECIFIED - Discharge Discharge Date: 05/19/25 Disposition: DC TO OTHER HOSP Condition: Fair Prescriptions: New Lactobacillus Acidophilus [Acidophilus TABLET] 1 tab PO DAILY tablet Docusate Sodium 100 mg [Docusate Sodium 100 MG] 100 mg PO BID cap Albuterol/Ipratropium 3ml Neb* [DUONEB 0.5-3 MG/3 ml Neb] 3 ml IH Q6HRT Ferrous Sulfate 325 mg [Feosol 325 mg] 325 mg PO DAILY tablet Heparin Flush 500 units/5 ml [Heparin Lock Flush 500 Units/5ml Syringe] 500 units PORT FLUSH PRN PRN PRN Reason: Iv Port Flush Pregabalin [Lyrica 150Mg] 150 mg PO TID cap Meropenem [Merrem] 1 gm IV Q8HT Guaifenesin 600 mg ER [Mucinex 600MG ER Tabs] 600 mg PO BID tablet Nicotine 21 mg [Nicoderm CQ 21 MG] 21 mg TOP DAILY patch Pantoprazole 20 mg [Protonix 20MG Tablet] 20 mg PO DAILY tablet Methylprednisolone Sod Suc 40M [solu-MEDROL] 40 mg IV Q8HT Water For Injection,Sterile [Sterile H2O 10 ml] 1 ml IV Q8HT Acetaminophen 325 mg [Tylenol 325 mg] 650 mg PO Q4H PRN PRN tablet PRN Reason: Pain And/Or Fever Ondansetron HCl 4 mg/2 ml [Zofran 4 MG/2 ML VIAL] 4 mg IV Q6H PRN PRN PRN Reason: Nausea/Vomiting Continue Tizanidine HCl 4 mg [Zanaflex 4 MG] 4 mg PO HS Discontinued Pregabalin [Lyrica 150Mg] 300 mg PO BID Nitrofurantoin Monohyd/M-Cryst [Macrobid 100 mg Capsule] 100 mg PO DAILY Tizanidine HCl 2 mg PO DAILY Valacyclovir HCl [Valacyclovir] 1 g PO DAILY Follow up with: SHANELL TAVERAS PA [Primary Care Provider, UNKNOWN]
[2025-05-19 10:32] LABS: Calcium 8.8 mg/dL (8.4-10.2); Carbon Dioxide 25.0 mmol/L (22-30); Creatinine 1 0.35 mg/dL (0.52-1.04); EST GLOMERULAR FILTRATION RATE 114.1 ML/MIN; Glucose 127.0 mg/dL (74-106); Potassium 4.0 mmol/L (3.5-5.1); SGOT/AST 28.0 U/L (14-36); SGPT/ALT 15.0 U/L (0-35); Total Protein 6.1 g/dL (6.3-8.2)
[2025-05-19] MEDS: Protonix 20MG Tablet PO SCH (10:55)
[2025-05-19] MEDS: FEOSOL 325 MG PO SCH (10:56)
[2025-05-19 12:33] VITALS: BP 100/49; TEMP 97.7
[2025-05-19 13:28] VITALS: PULSE 95; RESP 20; O2SAT 90
== END 2025-05-19 14:05 ==
LOC: ED 18:43 → MED SURG 05-17 00:27
PROVIDERS: ADMIT Internal Medicine; ATTEND Internal Medicine
DX: J18.9 Pneumonia, unspecified organism (principal); T17.908A Unspecified foreign body in respiratory tract, part unspecified causing other injury, initial encounter; L89.159 Pressure ulcer of sacral region, unspecified stage; R10.9 Unspecified abdominal pain; D64.9 Anemia, unspecified; K59.00 Constipation, unspecified; J90 Pleural effusion, not elsewhere classified; R63.6 Underweight; Z68.1 Body mass index [BMI] 19.9 or less, adult; R53.1 Weakness; K58.9 Irritable bowel syndrome, unspecified; G35.D Multiple sclerosis, unspecified; F17.200 Nicotine dependence, unspecified, uncomplicated; I10 Essential (primary) hypertension; F12.20 Cannabis dependence, uncomplicated; R19.7 Diarrhea, unspecified; R06.02 Shortness of breath; Z79.899 Other long term (current) drug therapy
CPT/HCPCS: 36415; 36600; 51702; 71045; 71270; 74177; 80048; 80053; 80202; 80307; 81001; 82375; 82607; 82728; 82746; 82803; 82805; 83540; 83550; 83605; 83690; 84134; 84145; 85025; 85027; 87040; 87070; 87493; 94640; 94667; 94668; 94760; 94762; 99285; G0328; Q3014